=== PATIENT | male | born 1990 | race Caucasian/White ===

== ENCOUNTER 2022-08-29 10:04 | Emergency (ER) | payer OTHER, SELFPAY ==
[2022-08-29 10:30] VITALS: BP 159/102; PULSE 88; RESP 24; TEMP 36.8; O2SAT 96
[2022-08-29 12:51] LABS: Appearance Urine Clear (Clear); Bilirubin Urine Negative (Negative); Blood Urine Negative (Negative); Color Urine Yellow (Yellow); Glucose Urine Negative (Negative); Ketones Urine Negative (Negative); Leukocyte Esterase Urine Negative (Negative); Nitrite Urine Negative (Negative); Protein Urine Trace (Negative); Specific Gravity Urine >= 1.030 (1.000-1.030); Urobilinogen Urine 0.2 (0.2-1.0)
[2022-08-29 13:27] LABS: Mucus Urine Few; RBC Urine 0-2 (0-2); WBC Urine 0-2 (0-5)
--- NOTE | 2022-08-29 13:45 | CRLHL7_ITS ---
For Patients: As a result of the Century Cures Act, medical imaging exams and procedure reports are released immediately into your electronic medical record. You may view this report before your referring provider. If you have questions, please contact your health care provider. INDICATION: Abdominal pain, possible hernia. TECHNIQUE: CT abdomen and pelvis acquired with 122 mL Isovue 370 IV contrast. Coronal and sagittal reformats were generated. COMPARISON: None. FINDINGS: Lower chest: Unremarkable. Liver: Unremarkable. Gallbladder and bile ducts: Unremarkable. No stones or inflammation. No biliary dilation. Spleen: Unremarkable. Pancreas: Unremarkable. Adrenal glands: Unremarkable. No nodules. Kidneys and Ureters: Unremarkable. No suspicious masses, stones, or hydronephrosis. Lymph Nodes and Retroperitoneum: Unremarkable. Vasculature: Unremarkable. GI tract: Unremarkable. Normal in caliber. Peritoneum/Abdominal Wall: A ventral abdominal wall defect measures approximately 2.3 cm (2/100) and contains herniated fat and omentum, but no herniation of bowel. Pelvic Viscera: Unremarkable. Bladder: Unremarkable. Bones: Unremarkable for age. IMPRESSION: 1. Ventral abdominal wall hernia just inferior to the umbilicus does not contain herniation of bowel. 2. No significant CT abnormality in the abdomen or pelvis. Please note that all CT scans at this facility use dose modulation, iterative reconstruction, and/or weight-based dosing when appropriate to reduce radiation dose to as low as reasonably achievable. Dictated by Noble Pack MD @ 08/29/2022 3:36:45 PM (Electronically Signed)
--- NOTE | 2022-08-29 13:46 | ED_ITS ---
HPI - Abdominal Pain General Chief Complaint: Abdominal Pain Stated Complaint: Abdominal pain Time Seen by Provider: 08/29/22 13:39 History of Present Illness HPI narrative: This 31-year-old male comes in reporting lower abdominal pain that began about an hour prior to arrival. He waited for about 3 hours before he was able to be seen because of very busy ER. After about 4 hours since the pain began he states that it has been a constant pain and that he noticed a bulge in his lower abdomen. He denies any altered bowel habits, nausea, vomiting, or symptoms of dysuria. He has not had any fevers. Related Data Previous Rx's Medication Instructions Recorded hydrocodone 5 mg-acetaminophen 325 1 tab PO Q4-6H PRN pain #20 tabs 08/29/22 mg tablet ondansetron 4 mg disintegrating 4 mg PO Q6H #20 tabs 08/29/22 tablet Allergies Allergy/AdvReac Type Severity Reaction Status Date / Time No Known Drug Allergies Allergy Verified 08/29/22 14:40 Review of Systems Status of ROS Reports: 10 or more systems reviewed and unremarkable except as noted in History and below Narrative Constitutional: No fevers, no weight gain or loss. Eyes: No discharge. No vision changes. HENT: No congestion, no sore throat, no ear pain. Cardiovascular: No chest pain, no palpitations. Respiratory: No shortness of breath, no wheezes, no cough. Gastrointestinal: No vomiting, no diarrhea. Lower abdominal pain as described above. Genitourinary: No dysuria, no hematuria. Musculoskeletal: Normal range of motion. Skin: No rashes, no pruritis. Neurological: No dizziness, weakness, sensory change, speech change. Endo/Heme/Allergies: No bruising or bleeding. No polydipsia. Pysch: no suicidality, no anxiety, no insomnia. All other systems reviewed and are negative. Exam Narrative: Exam Narrative: Constitutional: Well-developed, well-nourished, no acute distress. HEENT: Normocephalic, atraumatic. Neck: Normal range of motion. Nontender. Supple. Heart: Regular. No murmurs. Normal rate. Intact distal pulses. Lungs: Clear to auscultation. No chest discomfort. No wheezes, rhonchi, or rales. Abdomen: Normal bowel sounds. Tenderness in the lower abdomen without rebound tenderness. There is a palpable lump at the umbilicus typical of a umbilical hernia. Genitalia: Deferred. Back: No midline tenderness. Normal range of motion. Extremities: Normal range of motion. No injury. Skin: Intact. No rash. Warm. No erythema or pallor. Neurologic: No altered sensation. No weakness. Alert and oriented. Psychiatric: No suicidality. No anxiety or depression. No insomnia. Nursing notes and vitals signs are reviewed. Const: Vital Signs, click to edit/add: Vital Signs - 24 hr 08/29/22 10:30 Temperature 98.2 F Pulse Rate [Pulse Oximeter] 88 Respiratory Rate 24 Blood Pressure [Ri ght Upper Arm] 159/102 H Pulse Oximetry 96 Oxygen Delivery Me thod Room Air Course Vital Signs Vital signs: Initial Vital Signs Temperature 98.2 F 08/29/22 10:30 Temperature Source Temporal Artery Scan 08/29/22 10:30 Pulse Rate 88 08/29/22 10:30 Respiratory Rate 24 08/29/22 10:30 Blood Pressure 159/102 H 08/29/22 10:30 Blood Pressure Mean 121 08/29/22 10:30 Blood Pressure Position Supine 08/29/22 10:30 Pulse Oximetry 96 08/29/22 10:30 Oxygen Delivery Method 08/29/22 10:30 Vital Signs Temperature 98.2 F 08/29/22 10:30 Pulse Rate 88 08/29/22 10:30 Respiratory Rate 24 08/29/22 10:30 Blood Pressure 159/102 H 08/29/22 10:30 Pulse Oximetry 96 08/29/22 10:30 Oxygen Delivery Method 08/29/22 10:30 Temperature 98.2 F 08/29/22 10:30 Pulse Rate 88 08/29/22 10:30 Respiratory Rate 24 08/29/22 10:30 Blood Pressure 159/102 H 08/29/22 10:30 Pulse Oximetry 96 08/29/22 10:30 Oxygen Delivery Method 08/29/22 10:30 MDM - Abdominal Pain MDM Narrative Medical decision making narrative: This patient comes in with abdominal pain that began this morning. He does have a ventral hernia. This is palpable and tender to palpation. A CT scan of the abdomen and pelvis identifies this as a ventral hernia near the umbilicus. There is no evidence of bowel emanating through the hernia. I had the patient lay back and try to relax and I was able to reduce some of the herniation. The patient did receive Dilaudid 0.5 mg and Zofran 4 mg intravenously. I did speak with the surgeon on-call, Dr. Ash, who will be happy to see him in clinic for further evaluation and treatment. I did advise him to return if pain is not controlled. He did received prescriptions for [place] and Zofran. Lab Data Labs: Lab Results 08/29/22 08/29/22 08/29/22 Range/Units 12:30 14:19 14:19 WBC 8.34 (4.50-11.00) K/uL RBC 4.46 (4.30-5.90) m/uL Hgb 13.4 L (13.5-17.5) gm/dL Hct 39.7 (37.0-53.0) % MCV 89 (80-100) fL MCH 30 (26-34) pg MCHC 34 (32-36) gm/dL RDW Coeff of Leora 12.5 (11.5-15.5) % Plt Count 362 (140-440) K/uL Neut % (Auto) 64.2 (42.0-72.0) % Lymph % (Auto) 24.8 (20-44) % [place] % (Auto) 9.0 (0.0-11.0) % Eos % (Auto) 1.7 (0.0-7.0) % Baso % (Auto) 0.2 (0.0-3.0) % Neut # (Auto) 5.35 (1.7-7.0) K/uL Lymph # (Auto) 2.07 (0.90-2.90) K/uL [place] # (Auto) 0.80 (0.00-0.90) K/UL Eos # (Auto) 0.14 (0.00-0.50) K/uL Baso # (Auto) 0.02 (0.00-0.30) K/uL Abs Immat Gran (auto) 0.01 (0.00-0.30) K/uL Imm/Tot Granulo (auto) 0.1 % Sodium 140 (135-149) mmol/L Potassium 4.0 (3.6-5.1) mmol/L Chloride 109 (96-114) mmol/L Carbon Dioxide 23 (20-32) mmol/L BUN 11 (5-24) mg/dL Creatinine 0.6 (0.5-1.5) mg/dL Estimated GFR 131 ml/min Glucose 92 (60-115) mg/dL Calcium 8.9 (8.4-10.6) mg/dL Urine Color Yellow (Yellow) Urine Appearance Clear (Clear) Urine pH 6.0 (5.0-8.5) Ur Specific [place] >= 1.030 (1.000-1.030) Urine Protein Trace A (Negative) Urine Glucose (UA) Negative (Negative) Urine Ketones Negative (Negative) Urine Blood Negative (Negative) Urine Nitrite Negative (Negative) Urine Bilirubin Negative (Negative) Urine Urobilinogen 0.2 (0.2-1.0) Ur Leukocyte Esterase Negative (Negative) Urine RBC 0-2 (0-2) Urine WBC 0-2 (0-5) Ur Squamous Epith Cells None (None-Few) Urine Bacteria None (None) Urine Mucus Few A (None) Imaging Data CT scan - abdomen: Radiologist's impression: 1. Ventral abdominal wall hernia just inferior to the umbilicus does not contain herniation of bowel. 2. No significant CT abnormality in the abdomen or pelvis. Discharge Plan Discharge Clinical Impression: Abdominal hernia Patient Disposition: Home, Self-Care Condition: Unchanged Additional Instructions: Take medication as needed and indicated. Follow up with surgery Clinic for further evaluation and treatment call [phone]. Prescriptions: New hydrocodone-acetaminophen 5-325 mg tablet 1 tab PO Q4-6H PRN (Reason: pain) Qty: 20 0RF ondansetron 4 mg tablet,disintegrating 4 mg PO Q6H Qty: 20 0RF Follow Up/Referrals: Provider,Not a Local [Primary Care Provider] - Stand Alone Forms: [employer] Info Instructions
--- OUTSIDE RECORDS SUMMARY | 2022-08-29 14:23 | XMS_ITS | Clinical Summary ---
:1990 Author Organization [facility] Address [address] [place] [address] Care Team Providers Name Role Phone No Primary/Referring, Phy Primary Care Provider Unavailable Source Comments You are receiving this document as you are listed as the primary care provider,follow-up provider, or the patient has been referred to you for consultation.This is in compliance with the Medicare and Medicaid EHR Incentive Program,which states Providers who transition their patient to another setting of careor provider of care or refers their patient to another provider of care shouldprovide summarycare record for each transition of care or referral. [facility] Allergies No known active allergies Medications Medication Sig Dispensed Refills Start Date End Date Status oxyCODONE Take 1-2 Tabs by 30 Tab 0 05/22/2016 Ac tive (ROXICODONE) 5 MG mouth every 6 hours immediate release as needed for Pain. tablet polyethylene glycol Take 1 Packet by 10 Each 0 05/22/2016 Active (MIRALAX) packet mouth daily as needed for Constipation (No stool in the last two days). sennosides-docusate Take 1 Tab by mouth 14 Tab 0 05/22/2016 Active sodium two times a day. (SENNA-S,SENNA PLUS) 8.6-50 MG per tablet Social History Tobacco Use Types Packs/Day Years Used Date Smoking Tobacco: Every Day Cigarettes 10 Tobacco Cessation: Ready to Quit: No; Co unseling Given: Yes Alcohol Use Standard Drinks/Week Comments Yes 2 (1 standard drink = 0.6 oz pure alcoho l) Sex Assigned at Date Recorded Not on file Last Filed Vital Signs Vital Sign Reading Time Taken Comments Blood Pressure 122/68 05/22/2016 7:50 AM CDT Pulse 79 05/22/2016 7:50 AM CDT Temperature 36.6 ??C (97.8 ??F) 05/22/2016 7:50 AM CDT Respiratory Rate 20 05/22/2016 7:50 AM CDT Oxygen Saturation 96% 05/22/2016 7:50 AM CDT Inhaled Oxygen Concentration - - Weight 124.4 kg (274 lb 4 oz) 05/20/2016 7:22 PM CDT Height 165.1 cm (5' 5) 05/21/2016 8:57 AM CDT estimate Body Mass Index 45.64 05/20/2016 7:22 PM CDT Plan of Treatment Health Maintenance Due Date Last Done Comments Hep C Screening (Preventive 1990 Services) HepB (1) 1990 COVID-19 Vaccine (#1) 03/18/1989 HIV Screening (Preventive 2004 Services) Adult Preventive Visit 2006 DTaP/Tdap/Td (1 - Tdap) 2007 Influenza (#1) 2022 Zoster/Shingles (1 of 2) 2038 HPV Vaccine Aged Out No longer eligib le based on patient's age to complete this topic HepA Aged Out No longer eligib le based on patient's age to complete this topic Hib Aged Out No longer eligib le based on patient's age to complete this topic IPV (Polio) Aged Out No longer eligib le based on patient's age to complete this topic MCV4 Aged Out No longer eligib le based on patient's age to complete this topic Pneumococcal Aged Out No longer eligib le based on patient's age to complete this topic Advance Directives Latest Code Status on File Code Status Date Activated Date Inactivated Comments Full Code 05/20/2016 7:25 PM 05/22/2016 3:45 PM Care Teams Printing 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
--- OUTSIDE RECORDS SUMMARY | 2022-08-29 14:23 | XMS_ITS | Encounter Summary ---
:1990 Author Organization [facility] Address [address] [place] [address] Care Team Providers Name Role Phone No Primary/Referring, Phy Primary Care Provider Unavailable Reason for Visit Procedure/Equipment (Routine) - Incomplete Specialty Diagnoses / Procedures Referred By Contact Refer red To Contact Procedures Modesta Mckeon MD XR Chest 2 Views [address] [place] [address] Referral ID Status Reason Start Date Expiration Date Visits V isits Requested Authorized [id number] Incomplete 05/22/2016 08/21/2017 1 1 Encounter Details Date Type Department Care Team Description 05/22/2016 [facility] [address] [place] [address] Social History Tobacco Use Types Packs/Day Years Used Date Smoking Tobacco: Every Day Cigarettes 10 Alcohol Use Standard Drinks/Week Comments Yes 2 (1 standard drink = 0.6 oz pure alcoho l) Sex Assigned at Date Recorded Not on file documented as of this encounter Plan of Treatment Not on filedocumented as of this encounter Procedures Procedure Name Priority Date/Time Associated Comments Diagnosis XR CHEST 2 VIEWS Specified Time 05/22/2016 8:18 AM Res ults for this CDT procedure are i n the results section. documented in this encounter Results XR Chest 2 Views (05/22/2016 8:18 AM CDT) Anatomical Region Laterality Modality Chest, Lung Computed Radiography Specimen (Source) Anatomical Collection Method Collection Time Re ceived Time Location / / Volume Laterality 05/22/2016 8:18 AM CDT Narrative 05/22/2016 8:34 AM CDT XR CHEST 2 VIEWS 05/22/2016 8:18 AM INDICATION: Cough. Low oxygen saturation postop. COMPARISON: Portable chest 05/20/2016 at 1602 hours. FINDINGS: Strands of platelike atelectas is have developed in both lungs, more apparent in the left base. No effus ion on either side. Mild cardiac enlargement attributable to shallow insp iration. Monitoring leads have been removed. Procedure Note Polo Arriaga MBBS - 05/22/2016Formdanish bojorquez of this note might be different from the original. XR CHEST 2 VIEWS 05/22/2016 8:18 AM INDICATION: Cough. Low oxygen saturation postop. COMPARISON: Portable chest 05/20/2016 at 1602 hours. FINDINGS: Strands of platelike atelectas is have developed in both lungs, more apparent in the left base. No effus ion on either side. Mild cardiac enlargement attributable to shallow insp iration. Monitoring leads have been removed. Modesta TEE GD documented in this encounter Visit Diagnoses Not on filedocumented in this encounter Care Teams Deaf Teacher Relationship Specialty Start Date End Date No Primary/Referring, Phy PCP - General 05/20/16 documented as of this encounter
--- OUTSIDE RECORDS SUMMARY | 2022-08-29 14:24 | XMS_ITS | Encounter Summary ---
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 stable condition. Peña Whitaker MD Staff: MODESTA CHAVES MD CT/MODL /[id number] cc: OPERATIVE REPORT Staff Summary DOS: 05/20/2016 I was scrubbed for and supervised the dhaliwal portions of procedure. There were no apparent complication. Modesta Chaves MD Trauma, Critical Care & Acute Care Surgery 05/23/2016, 1:35 PM documented in this encounter Consult Notes Hay Cuevas RN - 05/20/2016 5:01 PM CDTAssociated Order(s): ED UR SUMMER CLERK CONSULT ED UR Container Filler Note Chart reviewed by ED UR Container Filler: Inpatient admission for management of a nail gun injury to theabd requiring exploratory surgery and post op cares. Hay Cuevas RN documented in this encounter OR Notes H&P - Modesta Chaves MD - 05/20/2016 4:17 PM CDT Trauma Surgery H&P Vijaya Soto NO ROOM (OR)/NO BED 05/20/2016 6:05 PM CC: 3 inch nail gun to abdomen HPI: History obtained with the assistance of Thai interpretor. 89 y.o. unknown who presents to the ER as TTA after sustaining a 3 in nail to the right upper abdomen. Patient was reportedly using a nail gun at work this afternoon when the nail ricocheted off the roof and into his R upper abdomen. EMS called. Patient was alert, in distress 2/2 pain. His vitals remained stable en route, was tachy in the low 100's. 150mcg fentanyl given en route with moderate improvement. In the ED patient arrived in distress from pain. Initial BP 124/80, HR 103, sats in the mid to upper90's. Complaints of R lower chest/upper abdominal pain. No other injuries per patient. No fall or LOC. No extremity pain. No back pain. FAST was negative for intraabdominal fluid. CXR was negative for pneumothorax. Patient remained hemodynamically stable and was transferred to the CT scanner. He received fentanyl 150 mcg in the ED with little improvement of pain. His last PO intake was at 1-2 hours prior to arrival. ROS: ROS collected during ED work up limited, patient denies any other pain or complaint other than RUQ pain. See HPI PMH: Patient denies any pertinent PMH. 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 General: AOx3. Speaks azerbaijani. Acute distress 2/2 pain. HEENT: anicteric sclera, NC/AT, no sign of trauma, EOMI, no hemotympanum or rhinorrhea Neuro: Grossly intact, no focal deficits, CN II-XII intact, PERRL Back: No visible sign of injury Spine: No cervical, thoracic, or lumbar spine tenderness or deformity CV: Tachycardic. Normal s1 s2 no mrg Lungs: CTAb, no respiratory distress Chest Wall: no obvious sign of injury, no apparent chest wall tenderness with palpation of the sternum or ribs Abd: Puncture site with nail visible to the R thoracoabdominal region, entry just inferior to costalmargin and extending inferiorly and posteriorly. TTP. Non distended. Pelvis: Stable Vascular: Proximal and distal pulses intact Ext: all joints ranged fully with FROM and all long bones stressed with no deformity no edema Labs: Hospital Encounter on 05/20/16 (from the past 24 hour(s)) Alcohol,Ethyl Result Value Ref Range Alcohol,Ethyl <0.01 g/dL Narrative Performed at [facility], [address] [place] [address] INR/Protime Result Value Ref Range Protime 12.9 sec INR 1.0 Narrative Performed at [facility], [address] [place] [address]6781 APTT (Activated Partial Thromboplastin Time) Result Value Ref Range PTT 26.0 sec Narrative Performed at [facility], [address] [place] [address] 33932 Basic Metabolic Panel Result Value Ref Range Sodium 141 mmol/L Potassium 4.1 mmol/L Chloride 108 mmol/L CO2 21 mmol/L Anion Gap (calc.) 12 mmol/L Glucose 105 mg/dl Calcium 9.4 mg/dl BUN 13 mg/dl Creatinine 1.03 mg/dl GFR, Estimated Unable to Calculate, Age/Sex Unknown ml/min/1.73m2 GFR, Est., If Black Unable to Calculate, Age/Sex Unknown ml/min/1.73m2 Narrative Performed at [facility], [address] [place] [address]955 Complete Blood Count-No Diff Result Value Ref Range WBC 11.2 k/ul RBC 4.90 M/ul HGB 15.3 g/dl HCT 44.2 % MCV 90.2 fl MCH 31.2 pg MCHC 34.6 g/dl RDW 12.4 % PLTS 315 k/ul MPV 9.7 fl Narrative Performed at [facility], [address] [place] [address] 39287 Fibrinogen Activity Result Value Ref Range Fibrinogen Activity 352 mg/dl Narrative Performed at [facility], [address] [place] [address] Type & Crossmatch-Units Avail For 3 Days Result Value Ref Range ABO/RH(D) O POSITIVE Antibody Screen NEGATIVE Crossmatch Expires 05/23/2016 Unit Number [id number] Blood Component Type LEUK RED HEAD ANIMAL KEEPER UNIT DIVISION 0 Status of Unit Rel from alloc Transfusion Status OK TO TRANSFUSE Crossmatch Result COMPATIBLE Unit Number [id number] Blood Component Type LEUK RED HEAD ANIMAL KEEPER UNIT DIVISION 0 Status of Unit Rel from alloc Transfusion Status OK TO TRANSFUSE Crossmatch Result COMPATIBLE Narrative Performed at [facility], [address] [place] [address] 85294 Gold Hold Tube (Or Red/Ward) Result Value Ref Range Gold Hold Tube Held in Chemistry sample rack for 7 days Narrative Performed at [facility], [address] [place] [address] 42548 ABO/RH(D) Retype Result Value Ref Range ABO/RH(D) O POSITIVE Narrative Performed at [facility], [address] [place] [address] 16545 Glucose, Whole Blood POC Result Value Ref Range Glucose, Whole Blood 103 mg/dl Imaging: CXR: Normal heart size and pulmonary vascularity. Lungs are clear. No pneumothorax. FAST: Negative. Non definitive RUQ, felt to represent subcapsular fat. Otherwise negative. CT A/P: Nail foreign body within the right upper quadrant which the distal most portion appears in the anterior aspect of segment 4A of the left hepatic lobe. No evidence of perihepatic hemorrhage. A/P: 89 y.o. old Male who presented to the ED as TTA on 05/20 after sustaining a nail gun injury to the right upper abdomen. Patient with 3 in nail puncturing through abdomen and embedded in R lobe of liver. Hemodynamically stable. -Patient to OR emergently for FB removal and laparoscopic exploration of the abdomen. -Will admit to trauma post op for close monitoring. Above assessment and plan discussed with the patient, any family present, as well as the referring provider Seen and discussed with Dr Chaves. Rambo Dowling MD Trauma Surgery [phone] TRAUMA STAFF Date of Service: 05/20/2016 The stabilization, resuscitation and evaluation for this TTA patient was performed under my direction. 35 minutes of continuous Trauma Surgeon presence and critical care management from arrival throughCT scans were required to assess for and manage life threatening injuries. I have reviewed the note by Dr. Dowling have edited the plan where appropriate. Mechanism: nail gun, penetrating injury to abdomen/lower right chest En route: as above, hemodynamically stable, 150mcg fentanyl administered for pain Primary Survey Airway patent. Spontaneous respirations with symmetrical chest wall expansion, RR 26 min. Sats 97% on 6L O2. Central pulses palpable. Peripheral pulses palpable, HR 102 & BP 124/80. Disability: GCS 15 CXR: no large hemopneumothorax, foreign body not visible given opacification of liver eFAST: negative, good sliding lung sign on the R. No intra-abdominal free fluid Elected to take pt to CT scanner as hemodynamically stable as it may yield more data that could inform operative decision making. CT imaging (personally reviewed) demonstrates: nail embedded in left lobe of the liver. No significant bleeding noted. Well away from colon. Does not appear to have violated diaphragm Injuries: Penetrating injury to the abdomen, liver injury Will take pt to the operating room for removal in a controlled setting. Will plan to start w/ laparoscopic access and visualized nail being removed with direct visualization of the the liver injury. This will allow us to immediately document any bleeding from the liver and provide control. We can alsoassess diaphragm (sensitivity of CT limited) for injury. Presence of uncontrollable bleeding, diaphragm injury or other intra-abdominal injury not appreciated on CT will be grounds for laparotomy. Modesta Chaves MD 6:57 PM documented in this encounter ED Notes Bronwyn Ramirez DO - 05/20/2016 4:13 PM CDT Emergency Department Attending Supervision Note I performed the dhaliwal elements of history and exam, and agree with resident's findings and plan of care as discussed with Olivia Cuellar. I have reviewed and agreed with the PMH, FH, SOC, ROS. Please see today's note by resident physician. Assessment/Plan: Unknown male on arrival with TTA; s/p nail gun injury sustained to RUQ/thoracoabdomen. VS within acceptable limits on EMS transport. Pt denies SOB. +Abdominal pain mostly located in region of penetrating injury. Nail is noted to be 3 autumn nail, completely imbeded/at level of skin on arrival. Primary survey intact. Secondary survey with only above finding. POC US FAST negative for abdominal FF. Limited cardiac window for complete assessment. pCXR w/o PTX/SHIELA. CTAP/chest reveals missle in R lobe of liver TACS at bedside throughout, appreciate ongoing mgmt, anticipated dispo to OR for removal of nail. I was present for dhaliwal portion of Ultrasound I certify that I performed or supervised the ultrasound(s), reviewed the image(s), and agree with the resident's findings. Author: Bronwyn Ramirez DO Olivia Cuellar MD - 05/20/2016 4:12 PM CDT TRAUMA TEAM ACTIVATION CC: TTA HPI: This is a middle-aged Thai speaking male, here as a trauma team activation. Per EMS, patientsustained a single nail gun injury to the right lower chest. History obtained via property management supervisor. Patient complains of: Right lower chest pain PMH: History of appendicitis Last tetanus was: Four years ago MEDS: None ALLERGIES: Allergies not on file ROS/SH/FH: Not obtained secondary to urgent nature of the patient's emergency room visit. PHYSICAL EXAMINATION: Vital signs: Please see trauma team flowsheet for full set of vitals. Pulse was in the 80s. Blood pressure was in the 130s systolic. Afebrile and sating at high 90s. PRIMARY SURVEY: AIRWAY: The patient was protecting his airway and was talking. BREATHING: The patient had breath sounds bilaterally. CIRCULATION: The patient had strong peripheral pulses. DISABILITY: The patient's GCS was 15. Patient was moving all extremities spontaneously and was following commands. EXPOSURE: The patient was fully exposed. SECONDARY SURVEY HEAD: NCAT EYES: Pupils 2mm equal and reactive EARS: TM's pearly without hemotympanum NOSE: no blood in nares MOUTH: no broken teeth mandible and maxilla grossly stable NECK: C-collar in place CHEST: Heart regular. Lungs clear. Single metal nail seen penetrating the right chest inferior and medial to the right nipple. BACK: no trauma on the back. no disruption of the skin. ABDOMEN: Soft and tender PELVIS: stable on AP and Lateral Compression EXTREMITIES: no injuries are seen in the extremities including the axillae. GENITOURINARY: no lacerations or injuries seen on the perineum. Rectal exam was not performed. ASSESSMENT: Nail gun injury to the right anterior inferior chest. EMERGENCY DEPARTMENT COURSE: Responded to TTA called by EMS. Patient arrived on backboard. Vital signs were stable. 2 large-bor peripheral IV's secured to facilitate volume resusitation. 2L of normal saline were hung. Obtained portable chest x-ray as well as a eFAST exam.eFAST exam was negative. Portable CXR was negative. Portable Pelvis Xray was not orderd. stable trauma panel of labs was sent and the patient was transported to radiology for the following imaging studies: CT abdomen and pelvis was obtained due to penetrating trauma. This showed a nail foreign body within the right upper quadrant which enters the liver. No perihepatic hemorrhage seen. fentanyl was given for pain. Tetanus was not updated. Pain meds: fentanyl Intubation medications: NA Tetanus: up to date Anxiolysis: none Antibiotics: none PLAN: Pt was quickly transferred of the emergency department to the operating room for removal of the foreign body in the operating room. Patient will then be admitted under the care of the TACS team who will complete the tertiary exam and continue management. FINAL DIAGNOSES: Penetrating stab wound to the right inferior chest involving the liver. Olivia Cuellar MD documented in this encounter Plan of Treatment Scheduled Referrals Name Type Priority Associated Diagnoses Order S chedule Trauma Acute Care Referral Routine Ordered: 0 05/21/2016 Surgery (TACS) Referral - Adults No Follow-Up Needed Referral Routine Once tod ay starting now for 1 Occurrenc es starting 2015 until 6 documented as of this encounter Procedures Procedure Name Priority Date/Time Associated Comments Diagnosis XR CHEST 2 VIEWS Specified Time 05/22/2016 8:18 Result s for this AM CDT procedure are i n the results section. BASIC METABOLIC PANEL Routine 05/21/2016 8:25 Res ults for this AM CDT procedure are i n the results section. COMPLETE BLOOD Routine 05/21/2016 8:25 Results fo r this COUNT-NO DIFF AM CDT procedure are in the results section. GLUCOSE, WHOLE BLOOD Routine 05/20/2016 8:57 Resu lts for this POCT PM CDT procedure are i n the results section. GLUCOSE, WHOLE BLOOD Routine 05/20/2016 6:02 Resu lts for this POCT PM CDT procedure are i n the results section. GLUCOSE, WHOLE BLOOD Routine 05/20/2016 5:04 Resu lts for this POCT PM CDT procedure are i n the results section. HEMOGLOBIN, MEASURED Routine 05/20/2016 5:02 Resu lts for this POCT PM CDT procedure are i n the results section. SURGICAL PATH Routine 05/20/2016 5:00 Results for this PM CDT procedure are i n the results section. CT ABD PELVIS W IV STAT 05/20/2016 4:25 Result s for this CONT PM CDT procedure are i n the results section. LAPAROSCOPIC ER Patient 05/20/2016 4:15 Acute foreign EXPLORATION ABDOMEN PM CDT body of abdominal wall ABO/RH(D) RETYPE STAT 05/20/2016 4:09 Results for this PM CDT procedure are i n the results section. XR PORTABLE CHEST 1 STAT 05/20/2016 4:07 Resul ts for this VIEW PM CDT procedure are i n the results section. GOLD HOLD TUBE (OR Routine 05/20/2016 3:59 Result s for this RED/WARD) PM CDT procedure are i n the results section. TYPE & Routine 05/20/2016 3:59 Results for this CROSSMATCH-UNITS PM CDT procedure a re in AVAIL FOR 3 DAYS the results section. BASIC METABOLIC PANEL STAT 05/20/2016 3:59 Res ults for this PM CDT procedure are i n the results section. APTT (ACTIVATED STAT 05/20/2016 3:59 Results f or this PARTIAL PM CDT procedure are i n THROMBOPLASTIN TIME the resu lts section. FIBRINOGEN ACTIVITY STAT 05/20/2016 3:59 Resul ts for this PM CDT procedure are i n the results section. COMPLETE BLOOD STAT 05/20/2016 3:59 Results fo r this COUNT-NO DIFF PM CDT procedure are in the results section. ALCOHOL,ETHYL STAT 05/20/2016 3:59 Results for this PM CDT procedure are i n the results section. INR/PROTIME STAT 05/20/2016 3:59 Results for this PM CDT procedure are i n the results section. POC US FAST Routine 05/20/2016 3:55 Results for this PM CDT procedure are i n the results section. EKG IP 05/20/2016 12:00 Results for this AM CDT procedure are i n the results [...] removed. Procedure Note Polo Arriaga MBBS - 05/22/2016Formattin g of this note might be different from [...] insp iration. Monitoring leads have been removed. Uroghupatei Greg Chaves MD RAD GD (ABNORMAL) Basic Metabolic Panel (05/21/2016 8:25 AM CDT) P athologist Signature Sodium 135 (L) 136 - 145 [facility] mmol/L [facility] Potassium 3.7 3.5 - 5.1 [facility] mmol/L [facility] Chloride 105 98 - 107 [facility] mmol/L [facility] CO2 21 20 - 29 [facility]/L [facility] Anion Gap 9 7 - 16 [facility] (calc.) mmol/L [facility] Glucose 118 70 - 180 [facility] mg/dl [facility]OSPITAL Calcium 8.4 8.4 - 10.2 [facility] mg/dl [facility] BUN 12 7 - 26 [facility] mg/dl [facility] Comment: PLEASE NOTE CHANGE IN REFERENCE RANGE Creatinine 0.70 (L) 0.73 - 1.18 mg/dl [facility] Comment: PLEASE NOTE CHANGE IN REFERENCE RANGE GFR, Estimated >60 >60 ml/min/1.73m2 [facility] GFR, Est., If Black >60 >60 ml/min/1.73m2 [facility] Specimen Anatomical Collection Method Collection Time Receive d Time (Source) Location / / Volume Laterality 05/21/2016 8:25 AM 6 8:26 CDT AM CDT [facility] - 05/21/2016 9:03 AM CD T Performed at [facility] , [address] [place] [address] Peña Whitaker MD LAB_1 Performing Organization Address City/State/ZIP Code Phon e Number [address] [address] (ABNORMAL) Complete Blood Count-No Diff (05/21/2016 8:25 AM CDT) athologist Signature WBC 9.1 4.0 - 11.0 [facility] RBC 4.43 (L) 4.5 - 5.9 [facility] Hemoglobin 13.9 13.5 - 17.5 [facility] g/dl [facility] HCT 40.6 (L) 41.0 - 53.0 [facility] MCV 91.6 80 - 100 [facility] MCH 31.4 26 - 34 pg [facility] MCHC 34.2 32 - 36 [facility] g/dl [facility] RDW 12.9 11.5 - 14.5 [facility] Platelets 253 150 - 450 [facility] MPV 9.4 9.4 - 12.4 [facility] Specimen Anatomical Collection Method Collection Time Receive d Time (Source) Location / / Volume Laterality 05/21/2016 8:25 AM 6 8:26 CDT AM CDT [facility] - 05/21/2016 8:40 AM CD T Performed at [facility] , [address] [place] [address] Peña Whitaker MD LAB_1 Performing Organization Address City/[facility]/[place]IP [facility] [place] [address] [address] Glucose, Whole Blood POC (05/20/2016 8:57 PM CDT) P athologist Signature Glucose, Whole 94 70 - 180 [facility] Blood mg/dl [facility] Comment: Point of Care Testing RN Notified QA FLAGS AND/OR RANGES MODIFIED BY [employer] RAPHIC UPDATE ON 05/21 AT 0659 Specimen Anatomical Collection Method Collection Time Receive d Time (Source) Location / / Volume Laterality 05/20/2016 8:57 PM 6 9:11 CDT PM CDT Bronwyn Ramirez DO LAB_1 Performing Organization Address [facility]/ZIP Code Phon e Number [address] [address] Glucose, Whole Blood POC (05/20/2016 6:02 PM CDT) P athologist Signature Glucose, Whole 111 70 - 180 [facility] Blood mg/dl [facility] Comment: Point of Care Testing RN Notified QA FLAGS AND/OR RANGES MODIFIED BY [employer] RAPHIC UPDATE ON 05/21 AT 0659 Specimen Anatomical Collection Method Collection Time Receive d Time (Source) Location / / Volume Laterality 05/20/2016 6:02 PM 6 6:10 CDT PM CDT Bronwyn Ramirez DO LAB_1 Performing Organization Address City/[facility] Phon e Number [address] [address] Glucose, Whole Blood POC (05/20/2016 5:04 PM CDT) P athologist Signature Glucose, Whole 103 70 - 180 [facility] Blood mg/dl [facility] Comment: Point of Care Testing RN Notified QA FLAGS AND/OR RANGES MODIFIED BY DEMElectron Database RAPHIC UPDATE ON 05/21 AT 0659 Specimen Anatomical Collection Method Collection Time Receive d Time (Source) Location / / Volume Laterality 05/20/2016 5:04 PM 6 5:12 CDT PM CDT Bronwyn Call Ashley SEGAL LAB_1 Performing Organization Address [facility] Phon e Number [address] [address] Hgb, Point of Care (05/20/2016 5:02 PM CDT) P athologist Signature Hemoglobin 13.6 13.5 - 17.5 [facility] g/dl [facility] Comment: QA FLAGS AND/OR RANGES MODIFIED BY DEMOGRAPHIC UPDATE ON 05/21 AT 0659 Specimen Anatomical Collection Method Collection Time Receive d Time (Source) Location / / Volume Laterality 05/20/2016 5:02 PM 6 6:38 CDT AM CDT Bronwyn Ramirez DO LAB_1 Performing Organization Address [facility] Phon e Number [address] [address] Surgical Path (05/20/2016 5:00 PM CDT) Patholo gist Method Time Signature Histology (NOTE) [facility] Final Report [facility] Patient Name: CLAUDINE ROYAL Taken: 05/20/2016 Received: 05/20/2016 Reported: 05/23/2016 Physician(s): MODESTA CHAVES ? Final Pathologic Diagnosis Foreign body, removal (gross examination only): ?- Consistent with foreign body (nail) *Electronically Signed Out By* ? Leida Brunner MD Procedures/Addenda Clinical History Autumn nail in abdomen ?? Gross Description The specimen is received fresh and labeled with the patient' s name and foreign body removal. ??The specimen consists of a 7.6 cm in length by 0.3 cm in diameter silver metallic nail. ??The specimen i s subjected to a gross examination only. ??js jds/05/21/2016 Microscopic Description Gross examination only. mrs/05/23/2016 Leida Brunner MD [facility] Department of Pathology [address] [place] [address] ??[id number] Specimen Anatomical Collection Method Collection Time Receive d Time (Source) Location / / Volume Laterality 05/20/2016 5:00 PM 6 6:36 CDT PM CDT Modesta Chaves MD LAB_1 Performing Organization Address City/State/ZIP Code Phon e Number [address] [address] [address] Abd Pelvis W IV Cont (05/20/2016 4:25 PM CDT) Anatomical Region Laterality Modality Abdomen, Pelvis Computed Tomography Specimen (Source) Anatomical Collection Method Collection Time Re ceived Time Location / / Volume Laterality 05/20/2016 4:25 PM CDT Narrative 05/20/2016 4:[address] ABD PELVIS W IV CONT 05/20/2016 4:25 PM ? INDICATION: Pain following trauma. Nail gun injury to right upper abdomen. TECHNIQUE: CT abdomen and pelvis. Multip lanar reformation images (MPR). Dose reduction techniques were used. IV CONTRAST: 125 mL Omnipaque 300 COMPARISON: None. FINDINGS: LUNG BASES: Negative. ABDOMEN: The liver is low-density appear ance, compatible with hepatic steatosis. There is a nail foreign body within the right upper quadrant with the distal portion breaching the an terior portion of the Blake segment of the left hepatic lobe. No evidence of perihepatic hemorrhage. The spleen, pancreas, gallbladder, adrenal g lands, and kidneys are grossly normal. The abdominal aorta is normal in caliber . No lymphadenopathy. No bowel obstruction or abnormal bowel wall thick ening. PELVIS: No free fluid. Urinary bladder i s grossly normal. No lymphadenopathy. MUSCULOSKELETAL: Negative. CONCLUSION: Nail foreign body within the right upper quadrant which the distalmost portion appears in the anteri or aspect of segment 4A of the left hepatic lobe. No evidence of perihepati c hemorrhage. Procedure Note Benny Spivey MD - 05/20/2016Form atting of this note might be different from the original. CT ABD PELVIS W IV CONT 05/20/2016 4:25 PM INDICATION: Pain following trauma. Nail gun injury to right upper abdomen. TECHNIQUE: CT abdomen and pelvis. Multip lanar reformation images (MPR). Dose reduction techniques were used. IV CONTRAST: 125 mL Omnipaque 300 COMPARISON: None. FINDINGS: LUNG BASES: Negative. ABDOMEN: The liver is low-density appear ance, compatible with hepatic steatosis. There is a nail foreign body within the right upper quadrant with the distal portion breaching the an terior portion of the Blake segment of the left hepatic lobe. No evidence of perihepatic hemorrhage. The spleen, pancreas, gallbladder, adrenal g lands, and kidneys are grossly normal. The abdominal aorta is normal in caliber . No lymphadenopathy. No bowel obstruction or abnormal bowel wall thick ening. PELVIS: No free fluid. Urinary bladder i s grossly normal. No lymphadenopathy. MUSCULOSKELETAL: Negative. CONCLUSION: Nail foreign body within the right upper quadrant which the distalmost portion appears in the anteri or aspect of segment 4A of the left hepatic lobe. No evidence of perihepati c hemorrhage. Bronwyn Ramirez DO RAD CT ABO/RH(D) Retype (05/20/2016 4:09 PM CDT) P athologist Signature ABO/RH(D) O POSITIVE [facility] Specimen Anatomical Collection Method Collection Time Receive d Time (Source) Location / / Volume Laterality 05/20/2016 4:09 PM 6 4:18 CDT PM CDT Narrative [facility] - 05/20/2016 4:35 PM CD T Performed at [facility] , [address] [place] [address] Bronwyn Ramirez DO LAB_1 Performing Organization Address City/State/ZIP Code Phon e Number [address] [address] XR Portable Chest 1 View (05/20/2016 4:07 PM CDT) Anatomical Region Laterality Modality Chest, Lung Computed Radiography Specimen (Source) Anatomical Collection Method Collection Time Re ceived Time Location / / Volume Laterality 05/20/2016 4:07 PM CDT Narrative 05/20/2016 4:18 PM CDT XR PORTABLE CHEST 1 VIEW 05/20/2016 4:07 PM INDICATION: Trauma. Pain ? COMPARISON: None. FINDINGS: Normal heart size and pulmonar y vascularity. Lungs are clear. No pneumothorax. IMPRESSION: Negative chest. Procedure Note Jerry Hidalgo MD - 05/20/2016Format ting of this note might be different from the original. XR PORTABLE CHEST 1 VIEW 05/20/2016 4:07 PM INDICATION: Trauma. Pain COMPARISON: None. FINDINGS: Normal heart size and pulmonar y vascularity. Lungs are clear. No pneumothorax. IMPRESSION: Negative chest. Bronwyn Ramirez DO RAD PORTABLE Gold Hold Tube (Or Red/Ward) (05/20/2016 3:59 PM CDT) [facility] Fitsistant Method Time Signature Gold Hold Held in [facility] Tube Chemistry HOSPITAL sample rack for 7 days Specimen Anatomical Collection Method Collection Time Receive d Time (Source) Location / / Volume Laterality 05/20/2016 3:59 PM 6 4:13 CDT PM CDT Narrative [facility] - 05/20/2016 4:15 PM CD T Performed at [facility] , [address] [place] [address] Bronwyn Ramirez DO LAB_1 Performing Organization Address City/State/ZIP Code Phon e Number [address] [address] Type & Crossmatch-Units Avail For 3 Days (05/20/2016 3:59 PM CDT) [facility] Fitsistant Method Time Signature ABO/RH(D) O POSITIVE [facility] Antibody Screen NEGATIVE [facility] Crossmatch 05/23/2016 [facility] Expires HOSPITAL Unit Number [id number] [facility] Blood 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 [facility] Type HOSPITAL UNIT DIVISION 0 [facility] Status of Unit Rel from alloc [facility] Transfusion OK TO REGIONS Status TRANSFUSE HOSPITAL Crossmatch COMPATIBLE [facility] Result HOSPITAL Unit Number [id number] [facility] Blood 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 [facility] Type HOSPITAL UNIT DIVISION 0 [facility] Status of Unit Rel from [facility] HOSPITAL Transfusion OK TO REGIONS Status TRANSFUSE HOSPITAL Crossmatch COMPATIBLE [facility] Result HOSPITAL Specimen Anatomical Collection Method Collection Time Receive d Time (Source) Location / / Volume Laterality 05/20/2016 3:59 PM 6 4:16 CDT PM CDT Narrative [facility] - 05/20/2016 5:38 PM CD T Performed at [facility] , [address] [place] [address] Bronwyn Ramirez DO LAB_1 Performing Organization Address [facility] Phon e Number [address] [address] Fibrinogen Activity (05/20/2016 3:59 PM CDT) P athologist Signature Fibrinogen 352 175 - 420 [facility] Activity mg/dl [facility] Comment: QA FLAGS AND/OR RANGES MODIFIED BY DEMOGRAPHIC UPDATE ON 05/21 AT 0659 Specimen Anatomical Collection Method Collection Time Receive d Time (Source) Location / / Volume Laterality 05/20/2016 3:59 PM 6 4:13 CDT PM CDT [facility] - 05/21/2016 6:59 AM CD T Performed at [facility] , [address] [place] [address] Bronwyn Ramirez DO LAB_1 Performing Organization Address [facility] Phon e Number [address] [address] (ABNORMAL) Complete Blood Count-No Diff (05/20/2016 3:59 PM CDT) P athologist Signature WBC 11.2 (H) 4.0 - 11.0 [facility] k/ul HOSPITAL Comment: QA FLAGS AND/OR RANGES MODIFIED BY DEMOGRAPHIC UPDATE ON 05/21 AT 0659 RBC 4.90 4.5 - 5.9 M/ul [facility] L Comment: QA FLAGS AND/OR RANGES MODIFIED BY DEMOGRAPHIC UPDATE ON 05/21 AT 0659 Hemoglobin 15.3 13.5 - 17.5 g/dl [facility] ITAL Comment: QA FLAGS AND/OR RANGES MODIFIED BY DEMOGRAPHIC UPDATE ON 05/21 AT 0659 HCT 44.2 41.0 - 53.0 % [facility] Comment: QA FLAGS AND/OR RANGES MODIFIED BY DEMOGRAPHIC UPDATE ON 05/21 AT 0659 MCV 90.2 80 - 100 fl [facility] Comment: QA FLAGS AND/OR RANGES MODIFIED BY DEMOGRAPHIC UPDATE ON 05/21 AT 0659 MCH 31.2 26 - 34 pg [facility] Comment: QA FLAGS AND/OR RANGES MODIFIED BY DEMOGRAPHIC UPDATE ON 05/21 AT 0659 MCHC 34.6 32 - 36 g/dl [facility] Comment: QA FLAGS AND/OR RANGES MODIFIED BY DEMOGRAPHIC UPDATE ON 05/21 AT 0659 RDW 12.4 11.5 - 14.5 % [facility] Comment: QA FLAGS AND/OR RANGES MODIFIED BY DEMOGRAPHIC UPDATE ON 05/21 AT 0659 Platelets 315 150 - 450 k/ul [facility] Comment: QA FLAGS AND/OR RANGES MODIFIED BY DEMOGRAPHIC UPDATE ON 05/21 AT 0659 MPV 9.7 9.4 - 12.4 fl [facility] Comment: QA FLAGS AND/OR RANGES MODIFIED BY DEMOGRAPHIC UPDATE ON 05/21 AT 0659 Specimen Anatomical Collection Method Collection Time Receive d Time (Source) Location / / Volume Laterality 05/20/2016 3:59 PM 6 4:13 CDT PM CDT Narrative [facility] - 05/21/2016 6:59 AM CD T Performed at [facility] , [address] [place] [address] Bronwyn Ramirez DO LAB_1 Performing Organization Address City/State/ZIP Code Phon e Number [address] [address] (ABNORMAL) Basic Metabolic Panel (05/20/2016 3:59 PM CDT) P athologist Signature Sodium 141 136 - 145 [facility] mmol/L [facility] Comment: QA FLAGS AND/OR RANGES MODIFIED BY DEMOGRAPHIC UPDATE ON 05/21 AT 0659 Potassium 4.1 3.5 - 5.1 mmol/L [facility] Comment: QA FLAGS AND/OR RANGES MODIFIED BY DEMOGRAPHIC UPDATE ON 05/21 AT 0659 Chloride 108 (H) 98 - 107 mmol/L [facility] Comment: QA FLAGS AND/OR RANGES MODIFIED BY DEMOGRAPHIC UPDATE ON 05/21 AT 0659 CO2 21 20 - 29 mmol/L [facility] Comment: QA FLAGS AND/OR RANGES MODIFIED BY DEMOGRAPHIC UPDATE ON 05/21 AT 0659 Anion Gap (calc.) 12 7 - 16 mmol/L [facility] Comment: QA FLAGS AND/OR RANGES MODIFIED BY DEMOGRAPHIC UPDATE ON 05/21 AT 0659 Glucose 105 70 - 180 mg/dl [facility] Comment: QA FLAGS AND/OR RANGES MODIFIED BY DEMOGRAPHIC UPDATE ON 05/21 AT 0659 Calcium 9.4 8.4 - 10.2 mg/dl [facility] Comment: QA FLAGS AND/OR RANGES MODIFIED BY DEMOGRAPHIC UPDATE ON 05/21 AT 06 BUN 13 7 - 26 mg/dl [facility] Comment: PLEASE NOTE CHANGE IN REFERENCE RANGE QA FLAGS AND/OR RANGES MODIFIED BY DEMOG RAPHIC UPDATE ON 05/21 AT 0659 Creatinine 1.03 0.73 - 1.18 mg/dl [facility] Comment: PLEASE NOTE CHANGE IN REFERENCE RANGE QA FLAGS AND/OR RANGES MODIFIED BY DEMOG RAPHIC UPDATE ON 05/21 AT 0659 GFR, Estimated Unable to Calculate, Age/Sex >60 ml/min/1.73m2 [facility] Unknown Comment: QA FLAGS AND/OR RANGES MODIFIED BY DEMOGRAPHIC UPDATE ON 05/21 AT 06 GFR, Est., If Black Unable to Calculate, >60 ml/min/1.73m2 [facility] Age/Sex Unknown Comment: QA FLAGS AND/OR RANGES MODIFIED BY DEMOGRAPHIC UPDATE ON 05/21 AT 06 Specimen Anatomical Collection Method Collection Time Receive d Time (Source) Location / / Volume Laterality 05/20/2016 3:59 PM 6 4:13 CDT PM CDT [facility] - 05/21/2016 6:59 AM CD T Performed at [facility] , [address] [place] [address] Bronwyn Ramirez DO LAB_1 Performing Organization Address City/State/ZIP Code Phon e Number [address] [address] APTT (Activated Partial Thromboplastin Time) (05/20/2016 3:59 PM CDT) athologist Signature PTT 26.0 24.0 - 37.0 [facility] Comment: QA FLAGS AND/OR RANGES MODIFIED BY DEMOGRAPHIC UPDATE ON 05/21 AT 06 Specimen Anatomical Collection Method Collection Time Receive d Time (Source) Location / / Volume Laterality 05/20/2016 3:59 PM 6 4:13 CDT PM CDT [facility] - 05/21/2016 6:59 AM CD T Performed at [facility] , [address] [place] [address] Bronwyn Ramirez DO LAB_1 Performing Organization Address City/[facility]/ZIP Code Phon e Number [facility] [address] [place] [address] [address] INR/Protime (05/20/2016 3:59 PM CDT) P athologist Signature Protime 12.9 12.0 - 14.5 [facility] Comment: QA FLAGS AND/OR RANGES MODIFIED BY DEMOGRAPHIC UPDATE ON 05/21 AT 0659 INR 1.0 0.9 - 1.1 [facility] Comment: QA FLAGS AND/OR RANGES MODIFIED BY DEMOGRAPHIC UPDATE ON 05/21 AT 0659 Specimen Anatomical Collection Method Collection Time Receive d Time (Source) Location / / Volume Laterality 05/20/2016 3:59 PM 6 4:13 CDT PM CDT Narrative [facility] - 05/21/2016 6:59 AM CD T Performed at [facility] , [address] [place] [address] Bronwyn Oneyda Ramirez DO LAB_1 Performing Organization Address City/[facility] Phon e Number [address] [address] Alcohol,Ethyl (05/20/2016 3:59 PM CDT) P athologist Signature Alcohol,Ethyl <0.01 <0.01 g/dL [facility] Comment: QA FLAGS AND/OR RANGES MODIFIED BY DEMOGRAPHIC UPDATE ON 05/21 AT 0659 Specimen Anatomical Collection Method Collection Time Receive d Time (Source) Location / / Volume Laterality 05/20/2016 3:59 PM 6 4:13 CDT PM CDT Narrative [facility] - 05/21/2016 6:59 AM CD T Performed at [facility] , [address] [place] [address] Bronwyn Ramirez DO LAB_1 Performing Organization Address City/[facility]/ZIP [facility] Phon e Number [address] [address] POC US FAST (05/20/2016 3:55 PM CDT) Anatomical Region Laterality Modality Ultrasound Specimen (Source) Anatomical Location Collection Method / Collectio n Time Received Time / Laterality Volume Narrative 05/20/2016 6:14 PM CDT Olivia Cuellar MD ? 05/20/2016 ??6:14 PM [facility] Point of Care Ultrasound Interpretation POC US FAST Date/Time: 05/20/2016 6:13 PM Performed by: OLIVIA CUELLAR Authorized by: BORNWYN RAMIREZ Point of Care Ultrasound: FAST (Focused Assessment with Sonography in Trauma) Indications: Abdominal Pain Window: Cardiac Window, Hepatorenal Wind ow, Perisplenic Window, Pelvic Window, Right Lung and Left Lung Findings: No Pericardial Effusion, No In traperitoneal Free Fluid and No Pneumothorax Impression: eFAST Negative Bronwyn Ramirez DO RAD POC US EKG IP (05/20/2016 12:00 AM CDT) Specimen (Source) Anatomical Location Collection Method / Collectio n Time Received Time / Laterality Volume 05/20/2016 Narrative This result has an attachment that is no t available. Provider [facility] EKG documented in this encounter Visit Diagnoses Diagnosis Stab wound - Primary Open wound(s) (multiple) of unspecified site(s), without mention of complication Injury by nail gun, initial encounter Liver injury, initial encounter Penetrating chest wound, unspecified lat erality, initial encounter Plan of Care - Luz Morales RN - 05/22/2016 10:25 AM CDT [facility] Discharge Note - Nursing Admission Date/Time: 05/20/2016 3:50 PM Attending MD: Modesta Chaves MD Patient discharged: to Home. Discharge Date: 05/22/2016 Discharge Time: 1:41 PM Patient accompanied by: relative. Transported by: Walked Valuables were taken home by patient: Yes Discharge instructions given and explained to patient: Yes Discharge Patient Education Plan completed, taught, and provided to patient/caregiver at discharge: Yes, done with video therapist's assistant ?? Discussed medication risks with patient ?? Patient understands medications usage and side effects ?? Patient understands diagnosis ?? Action Plan for management of symptoms/side effects/complications requiring medical attention established and shared with patient/caregiver Was patient discharged on Warfarin? {(Do not delete line; Warfarin documentation is required) No Patients general condition on discharge: Stable. VSS, sats well on RA. LS clear, +BS, +flatus. Ambulating independently, adequate UOP. Tolerating regular diet All medical devices (telemetry/IV/etc) unless otherwise ordered, have been removed and stored: Yes Report Completed by: Luz Morales RN --- End of Report --- Plan of Care - Collins Bennett RN - 05/22/2016 3:57 AM CDT [facility] Plan of Care Note Assessment: Comfort Plan: Promote comfort with pain medicine; encourage ambulation in yung. Subjective: prudencio pokito Objective: Alert and oriented x4, but Thai speaking. Activity improved steadily, walked in yung before bedtime. Patient reported improvement with pain. Hypoactive BS, tolerating regular meal withoutproblem. No nausea or vomiting. Sleeping adequately between cares. Vss, afebrile. --- End of Report --- Plan of Care - Adi Moreira RN - 05/21/2016 6:16 PM CDT Problem: Pain, Acute (Adult) Goal: Identify Related Risk Factors and Signs and Symptoms 05/21/16 181 Pain, Acute Related Risk Factors (Acute Pain) communication barrier;trauma;surgery;positioning Signs and Symptoms (Acute Pain) fatigue/weakness;guarding/abnormal posturing/positioning;verbalization of pain descriptors Comments: [facility] Plan of Care Note Assessment: Comfort Plan: patient will have tolerable pain control with increase in activity Subjective: Esta Foreign. Objective: patient vss. Pt was up ambulating in the halls with the RN, tolerated well. Pt has hypo bs, denies flatus. Reports that abdomen is slight more bloated/rounded than normal. Pt is having tolerable pain control with scheduled tylenol and prn oxycodone. Pt tolerating regular diet, encouraged fluid intake. Discussed plan of care with patient, provider and interpretter. Cared for patient from [phone]. --- End of Report --- Plan of Care - Luz Morales RN - 05/21/2016 12:41 PM CDT Pain, Acute (Adult) ??? Identify Related Risk Factors and Signs and Symptoms Progressing ??? Acceptable Pain Control/Comfort Level Progressing Perioperative Period (Adult) ??? Signs and Symptoms of Listed Potential Problems Will be Absent or Manageable (Perioperative Period) Progressing [facility] Plan of Care Note Assessment: Pain, ROBF Plan: Assess and manage pain, monitor for ROBF Subjective: I feel okay Objective: A/Ox4, pt states pain is tolerable with scheduled tylenol. Abd soft/tender, BS not audible, denies flatus. Tolerated CLD, advanced to regular diet. Up with therapy today, c/o pain with activity and is feeling SOB. Continues to require 1-2L NC, encouraged frequent IS use. VSS. Up in chair all morning. In-person and video therapist's assistant used for assessments, teaching, and interaction with therapy. Due to void. Cared for pt from [phone] --- End of Report --- Initial Assessments - Jered Granados RN - 05/21/2016 9:38 AM CDT [facility] Trauma Case Management Initial Assessment Admission Date/Time: 05/20/2016 3:50 PM Assessment Td Status: Updated ETOH SBIRT: Negative ETOH Level: <0.01 Chem Dep Consult: No GCS Scene: No forms GCS ED: Eye: 4 Verbal: 5 Motor: 6 Mechanism of injury: Patient was reportedly using a nail gun at work when the nail ricocheted off the roof and into his R upper abdomen Identified injuries: injuries [employer] Plan Follow Up 1. Foreign body into abdominal wall Trauma 05/20 s/p laparoscopic exploration -Pain control -ADAT Pertinent Clinical Issues Plan Follow Up 1. Focused physical exam and pertinent findings: Patient seen at bedside on S11. Neuro: alert, oriented x4. PERRL. MCKEON. Denies N/T. Currently rating abdominal pain 01/05. Cardiac: S1S2. Regular rate. 2 radial pulses. +2 DP pulses. Afebrile. Respiratory: Lung sounds clear. SpO2 95% on RA. GI: Active bowel sounds. Abdomen soft, tender. Denies nausea/vomiting. Tolerating clear liquid diet. :Voiding spontaneously without difficulty. Adequate urine output. Activity: Up ad arina. Height: 5' 5 (165.1 cm) (estimate) Weight: 124.4 kg (274 lb 4 oz) Temp: 98.2 ??F (36.8 ??C) Pulse: 67 BP: 115/60 mmHg Resp: 18 SpO2: (!) 89 % HGB (g/dl) Date Value 05/21/2016 13.9 05/20/2016 13.6 05/20/2016 15.3 WBC (k/ul) Date Value 05/21/2016 9.1 05/20/2016 11.2* Last Chem8 results: Lab Results Component Value Date/Time SODIUM 135* 05/21/2016 08:25 AM POTASSIUM 3.7 05/21/2016 08:25 AM CHLORIDE 105 05/21/2016 08:25 AM CO2 21 05/21/2016 08:25 AM BUN 12 05/21/2016 08:25 AM CREATININE 0.70* 05/21/2016 08:25 AM GLUCOSE 118 05/21/2016 08:25 AM CALCIUM 8.4 05/21/2016 08:25 AM ANION GAP (CALC.) 9 05/21/2016 08:25 AM Current living situation: Lives with friend in trailer home Family spokesperson: Self Planned disposition: Home 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 NO. Care Plan Initial Plan of Care: Pain: APAP, oxycodone, morphine Aggressive pulmonary toileting, I/S DVT Prophylaxis: SCDs Diet: Regular Bowel Regimen: Miralax, Senna-S, Dulcolax Social Work Consult for patient and family counseling, coordination of care and discharge planning This document was completed by: Jered Granados RN --- End of Report --- Plan of Care - Collins Bennett RN - 05/21/2016 7:52 AM CDT [facility] Nursing Post-Op Note Admission Date/Time: 05/20/2016 3:50 PM Returned to: S11 on (date) 05/20/16 at (time) 1915 from [facility] Transported by: Litter/cart Medical devices present on return from O.R.: IV General condition on return from O.R.: Alert and oriented with moderate amount of pain. Vss, afebrile. No nausea and vomiting. Report Completed by: Collins Bennett RN --- End of Report --- Plan of Care - Collins Bennett RN - 05/21/2016 7:49 AM CDT [facility] Plan of Care Note Assessment: Post op status, pain Plan: Promote comfort and monitor hemodynamic status Subjective: prudencio. Patient is Thai speaking but uses call light Objective: Vss, afebrile. Oxycodone provided for pain with relief observed. Abdomen is soft and tender. No nausea and vomiting. Drinking sips of water without problems. Lungs clear and breathing without using accessory muscles. --- End of Report --- Plan of Care - Constanza London RN - 05/20/2016 7:25 PM CDT [facility] Plan of Care Note (Nursing) I have completed a skin assessment for this patient and agree with the documentation. Constanza London RN --End of Report-- documented in this encounter Administered Medications Inactive Administered Medications - up to 3 most recent administrations Medication Order MAR Action Action Date Dose Rate Site acetaminophen (TYLENOL) tablet 650 Given 05/22/2016 7:48 AM CDT 650 mg mg 650 mg, Oral, Q6H (NON-STND), First dose on Thu05/20/16 at 1945, Until Discontinued Given 05/22/2016 1:44 AM CDT 650 mg Given 05/21/2016 7:47 PM CDT 650 mg fentaNYL (aka SUBLIMAZE) injection Given 05/20/2016 4:02 PM CDT 50 mcg Intravenous, PRN WITH PROCEDURES, Starting on Thu05/20/16 at 1602, Until Thu05/20/16 at 1602 fentaNYL (aka SUBLIMAZE) injection Given 05/20/2016 4:09 PM CDT 50 mcg Intravenous, PRN WITH PROCEDURES, Starting on Thu05/20/16 at 1609, Until Thu05/20/16 at 1609 lactated ringers infusion New Bag Started 05/21/2016 3:56 AM 1,000 mL 125 mL/hr 1,000 mL, Intravenous, at CDT 125 mL/hr, CONTINUOUS, Starting on Thu05/20/16 at 1945 Started 05/20/2016 7:51 PM CDT 1,000 mL 125 mL/hr lactated ringers infusion Started 05/21/2016 8:43 AM CDT 1,000 mL 50 mL/hr 1,000 mL, Intravenous, at 50 mL/hr, CONTINUOUS, Starting on Thu05/21/16 at 0845 lidocaine-EPINEPHrine 1 Given 05/20/2016 5:28 PM CDT 10 mL Other (Comment) %-[id number] injection SOLN 10 mL 10 mL, Injection, INTRA-OP, Starting on Thu05/20/16 at 1738, Until Thu05/20/16 at 1728, For 1 dose, Intra-op oxyCODONE (ROXICODONE) immediate release Given 05/22/2016 7:48 A M CDT 10 mg tablet 5-10 mg 5-10 mg, Oral, Q4H PRN, Pain, Starting on Thu05/20/16 at 1925, Until Nataly 05/22/16 at 1545, Give PO opioid if able to take PO and pain not well controlled with other medications or interventions. Given 05/22/2016 1:44 AM CDT 5 mg Given 05/21/2016 7:47 PM CDT 5 mg polyethylene glycol (MIRALAX) oral powde r 17 g Given 05/22/2016 10:18 AM CDT 17 g 17 g, Oral, DAILY, First dose on Thu05/22/16 at 0945, Until Discontinued, Do not add to pre-thickened juices. Ok to add to liquid thickened with Thicken-Up. sennosides-docusate sodium (SENNA-S,SENNA Given 05/22/2016 7 :48 AM CDT 1 Tablet PLUS) 8.6-50 MG per tablet 1 Tab 1 Tablet, Oral, BID, First dose on Thu05/20/16 at 2000, Until Discontinued, as laxative/stimulant, stool-softening agent Given 05/21/2016 7:47 PM CDT 1 Tablet Given 05/21/2016 8:37 AM CDT 1 Tablet documented in this encounter Active and Recently Administered Medications Times are shown in CDT. Scheduled Medication Order 05/20/2016 05/21/2016 05/22/2016 acetaminophen (TYLENOL) tablet 650 mg 1949 (Given - Pr ovider: Collins Bennett RN) 0133 (Given - Provider: Tonny Yousif)0837 (Given - Provider: Luz Morales RN)1321 (Given - Provider: Adi Moreira RN)1947 (Given - Provider: Collins Bennett RN) 0144 (Given - Provider: Tonny Yousif)0748 (Given - Provider: Luz Morales RN)1345 (Due) 650 mg, Oral, Q6H (NON-STND), First dose on Thu05/20/16 at 1945 lidocaine-EPINEPHrine 1 %[id number] injection SOLN 10 m L (COMPLETED) 1728 (Given - Provider: Marti Sesay RN - Comment: INCISION SITE) 10 mL, Injection, INTRA-OP, Starting on Thu05/20/16 at 1738, Until Thu05/20/16 at 1728, For 1 dose, Intra-op polyethylene glycol (MIRALAX) oral powder 17 g (CANCELED) 1018 (Given - Provider: Luz Morales RN) 17 g, Oral, DAILY, First dose on 04/29 at 0945, Do not add to pre- thickened juices. Ok to add to liquid thickened with Thicken-Up. sennosides-docusate sodium (SENNA-S,SENNA PLUS) 8.6-50 MG per tablet 1 Tab 1950 (Given - Provider: Collins Bennett RN) 0837 (Given - Provider: Luz Morales, SIENA)1947 (Given - Provider: Collins Bennett RN) 0748 (Given - Provider: Luz Morales RN) 1 Tab, Oral, BID, First dose on 05/20 at 2000, as laxative/stimulant, stool-softening agent Continuous Medication Order 05/20/2016 05/21/2016 05/22/2016 lactated ringers infusion (CANCELED) 1950 (Started - P rovider: Collins Bennett RN) 0356 (New Bag Started - Provider: Collins Bennett RN)0843 (Infused - Provider: Luz Morales RN) 1,000 mL, Intravenous, at 125 mL/hr, CONTINUOUS, Starting Thu at 1945 lactated ringers infusion (CANCELED) 084 3 (Started - Provider: Luz Morales RN) 1,000 mL, Intravenous, at 50 mL/hr, CONTINUOUS, Starting 04/29 at 0845 PRN Medication Order 05/20/2016 05/21/2016 05/22/2016 fentaNYL (aka SUBLIMAZE) injection (COMPLETED) 1602 (G iven - Provider: bAby Howe RN) Intravenous, PRN WITH PROCEDURES, Starti ng on Thu05/20/16 at 1602, Until Thu05/20/16 at 1602 fentaNYL (aka SUBLIMAZE) injection (COMPLETED) 1609 (G iven - Provider: Abby Howe RN) Intravenous, PRN WITH PROCEDURES, Starti ng on Thu05/20/16 at 1609, Until Thu05/20/16 at 1609 oxyCODONE (ROXICODONE) immediate release tablet 5-10 m g 194 (Given - Provider: Collins Bennett RN) 0133 (Given - Provider: Collins S Afuye, R N)0657 (Given - Provider: Collins Bennett RN)1321 (Given - Provider: Adi Moreira, SIENA)1947 (Given - Provider: Collins Bennett RN) [phone] (Given - Provider: Collins Bennett RN)[phone] (Given - Provider: Luz Morales RN) 5-10 mg, Oral, Q4H PRN, Pain, Starting T ue 05/20/16 at 1925, Give PO opioid if able to take PO and pain not well controlled with other medications or interventions. polyethylene glycol (MIRALAX) oral powder 17 g 17 g, Oral, DAILY PRN, Constipation, No stool in the last two days, Starting Tu05/20/16 at 1925, Cumulative bowel medication orders. If no stool in last day start Senna-S BID PRN no stool, if no stool in last 2 days add Miralax DAILY PRN no stool, if no stool in last 3 days add bisacodyl suppository DAILY PRN until patient stools. When patient stools stop giving PRN meds and continue monitoring for b owel activity. When no stools X 1 day, b egin regimen again until patient stools. documented in this encounter Care Teams Camera Engineer Relationship Specialty Start Date End Date No Primary/Referring, Phy PCP - General 05/20/16 documented as of this encounter
--- OUTSIDE RECORDS SUMMARY | 2022-08-29 14:24 | XMS_ITS | Encounter Summary ---
:1990 Author Organization [facility] Address [address], [place] [address] Care Team Providers Name Role Phone No Primary/Referring, Phy Primary Care Provider Unavailable Reason for Visit Procedure/Equipment (Routine) - Incomplete Specialty Diagnoses / Procedures Referred By Contact Refer red To Contact Procedures Bryan Ramirez, CT Abd Pelvis W IV Cont [address] [place] [address] Referral ID Status Reason Start Date Expiration Date Visits V isits Requested Authorized [id number] Incomplete 05/20/2016 08/19/2017 1 1 Encounter Details Date Type Department Care Team Description 05/20/[address] [place] [address] Social History Tobacco Use Types Packs/Day Years Used Date Smoking Tobacco: Every Day Cigarettes 10 Alcohol Use Standard Drinks/Week Comments Yes 2 (1 standard drink = 0.6 oz pure alcoho l) Sex Assigned at Date Recorded Not on file documented as of this encounter Plan of Treatment Not on filedocumented as of this encounter Procedures Procedure Name Priority Date/Time Associated Diagnosis Comme nts CT ABD PELVIS W IV STAT 05/20/2016 4:25 PM Res ults for this CONT CDT procedure are i n the results section. documented in this encounter Visit Diagnoses Not on filedocumented in this encounter Administered Medications Inactive Administered Medications - up to 3 most recent administrations Medication Order MAR Action Action Date Dose Rate Site iohexol (aka OMNIPAQUE) 300 MG/ML Given 05/20/2016 4:21 PM CDT 1 25 mL injection 125 mL 125 mL, Intravenous, ONCE, On Thu05/20/16 at 1645, For 1 dose documented in this encounter Care Teams Maintenance Team Member Relationship Specialty Start Date End Date No Primary/Referring, Phy PCP - General 05/20/16 documented as of this encounter
--- OUTSIDE RECORDS SUMMARY | 2022-08-29 14:24 | XMS_ITS | Encounter Summary ---
:1990 Author Organization [facility] Address [address], [place] [address] Care Team Providers Name Role Phone No Primary/Referring, Phy Primary Care Provider Unavailable Encounter Details Date Type Department Care Team Description 05/20/2016 Consent for [facility] INFORM ED CONSENT Procedure/Treatment RECORD Social History Tobacco Use Types Packs/Day Years Used Date Smoking Tobacco: Every Day Cigarettes 10 Alcohol Use Standard Drinks/Week Comments Yes 2 (1 standard drink = 0.6 oz pure alcoho l) Sex Assigned at Date Recorded Not on file documented as of this encounter Plan of Treatment Not on filedocumented as of this encounter Visit Diagnoses Not on filedocumented in this encounter Care Teams Adjusto Writer Operator Relationship Specialty Start Date End Date No Primary/ReferringTima PCP - General 05/20/16 documented as of this encounter
--- OUTSIDE RECORDS SUMMARY | 2022-08-29 14:24 | XMS_ITS | Encounter Summary ---
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 without using accessory muscles. --- End of Report --- Plan of Care - Constanza London RN - 05/20/2016 7:25 PM CDT [facility] Plan of Care Note (Nursing) I have completed a skin assessment for this patient and agree with the documentation. Constanza London RN --End of Report-- documented in this encounter Active and Recently Administered Medications Times are shown in CDT. Scheduled Medication Order 05/20/2016 05/21/2016 05/22/2016 acetaminophen (TYLENOL) tablet 650 mg 194 (Given - Pr ovider: Collins Bennett RN) 0133 (Given - Provider: Tonny Yousif)0837 (Given - Provider: Luz Morales RN)1321 (Given - Provider: Adi Moreira RN)1947 (Given - Provider: Collins Bennett RN) 0144 (Given - Provider: Tonny Yousif)0748 (Given - Provider: Luz Morales RN)1345 (Due) 650 mg, Oral, Q6H (NON-STND), First dose on Thu05/20/16 at 1945 lidocaine-EPINEPHrine 1 %-1:[id number] injection SOLN 10 m L (COMPLETED) 1728 (Given - Provider: Marti Sesay RN - Comment: INCISION SITE) 10 mL, Injection, INTRA-OP, Starting on Thu05/20/16 at 1738, Until Thu05/20/16 at 1728, For 1 dose, Intra-op polyethylene glycol (MIRALAX) oral powder 17 g (CANCELED) 1018 (Given - Provider: Luz Morales, SIENA) 17 g, Oral, DAILY, First dose on 04/29 at 0945, Do not add to pre- thickened juices. Ok to add to liquid thickened with Thicken-Up. sennosides-docusate sodium (SENNA-S,SENNA PLUS) 8.6-50 MG per tablet 1 Tab 195 (Given - Provider: Collins Bennett RN) 0837 (Given - Provider: Luz Morales RN)1947 (Given - Provider: Collins Bennett RN) 0748 (Given - Provider: Luz Morales, SIENA) 1 Tab, Oral, BID, First dose on 05/20 at 2000, as laxative/stimulant, stool-softening agent Continuous Medication Order 05/20/2016 05/21/2016 05/22/2016 lactated ringers infusion (CANCELED) 1951 (Started - P rovider: Collins Bennett RN) 0356 (New Bag Started - Provider: Collins Bennett RN)0843 (Infused - Provider: Luz Morales, SIENA) 1,000 mL, Intravenous, at 125 mL/hr, CONTINUOUS, Starting Thu at 1945 lactated ringers infusion (CANCELED) 084 3 (Started - Provider: Luz Morales, SIENA) 1,000 mL, Intravenous, at 50 mL/hr, CONTINUOUS, Starting 04/29 at 0845 PRN Medication Order 05/20/2016 05/21/2016 05/22/2016 fentaNYL (aka SUBLIMAZE) injection (COMPLETED) 1602 (G iven - Provider: Abby Howe, SIENA) Intravenous, PRN WITH PROCEDURES, Starti ng on Thu05/20/16 at 1602, Until Thu05/20/16 at 1602 fentaNYL (aka SUBLIMAZE) injection (COMPLETED) 1609 (G iven - Provider: Abby Howe, SIENA) Intravenous, PRN WITH PROCEDURES, Starti ng on Thu05/20/16 at 1609, Until Thu05/20/16 at 1609 oxyCODONE (ROXICODONE) immediate release tablet 5-10 m g 1948 (Given - Provider: Collins Bennett, SIENA) 0133 (Given - Provider: Collins Bennett, Tonny N)0657 (Given - Provider: Collins Bennett RN)1321 (Given - Provider: Adi Moreira RN)194 (Given - Provider: Collins Bennett RN) 0144 (Given - Provider: Collins Bennett RN)0748 (Given - Provider: Luz Morales RN) 5-10 mg, Oral, Q4H PRN, Pain, Starting T 05/20/16 at 1925, Give PO opioid if able to take PO and pain not well controlled with other medications or interventions. polyethylene glycol (MIRALAX) oral powder 17 g 17 g, Oral, DAILY PRN, Constipation, No stool in the last two days, Starting Thu05/20/16 at 1925, Cumulative bowel medication orders. If [...] stools. documented in this encounter Care Teams Knowledge Analyst Relationship Specialty Start Date End Date No Primary/Referring, Phy PCP - General 05/20/16 documented as of this encounter
--- OUTSIDE RECORDS SUMMARY | 2022-08-29 14:24 | XMS_ITS | Encounter Summary ---
:1990 Author Organization [facility] Address [address] [place] [address] Care Team Providers Name Role Phone No Primary/Referring, Phy Primary Care Provider Unavailable Reason for Visit Procedure/Equipment (Routine) - Incomplete Specialty Diagnoses / Procedures Referred By Contact Refer red To Contact Procedures Bryan Ramirez, DO XR Portable Chest 1 View [address] [place] [address] Referral ID Status Reason Start Date Expiration Date Visits V isits Requested Authorized [id number] Incomplete 05/20/2016 08/19/2017 1 1 Encounter Details Date Type Department Care Team Description 05/20/2016 [facility] Canceled (Clinic Request) [address] [place] [address] Social History Tobacco Use Types Packs/Day Years [...] on filedocumented in this encounter Care Teams Department Sales Manager Relationship Specialty Start Date End Date No Primary/Referring, Tima PCP - General 05/20/16 documented as of this encounter
--- OUTSIDE RECORDS SUMMARY | 2022-08-29 14:24 | XMS_ITS | Encounter Summary ---
:1990 Author Organization [facility] Address [address], [place] [address] Care Team Providers Name Role Phone No Primary/Referring, Phy Primary Care Provider Unavailable Encounter Details Date Type Department Care Team Description 05/20/2016 Anesthesia Event [facility] Operating Room Arcelia Lo MD [address] [facility] Jose M Walsh APRN, BOTTOM LINER [address] [place], [place] [id number] [place], [place] [address] Anesthesia Record Procedure Summary Procedure Name Responsible Anesthesia Start Anesthesia Stop Anesthesiologist Time Time LAPAROSCOPIC Arcelia Lo MD 05/20/16 1633 05/20/16 1747 EXPLORATION ABDOMEN FOREIGN BODY REMOVAL Events Date Time Event Comment 05/20/2016 1633 An Start 1634 An Start Data 1642 MD/DO Present 1648 An Induction 1649 An Intubation 1702 MD/DO Present 1703 An Labs Hgb 13.6 g/dl, B G = 103 mg/dl. 1736 An Extubation Purposeful movem ent with spontaneous respirations and adequate air exchange. Suctioned and ETT removed. Transfe rred with oxygen to recovery. 1740 an stop data 1746 Care Handoff Note Airway patent . Vital signs stable. Condition unchanged. Repor t given according to policy and procedure. Elect ronically signed by Jose M Walsh APRN, BOTTOM LINER 1747 An Stop Care transferred . 1843 AN Close Name Total FENTanyl injection (aka SUBLIMAZE) 10 mL lidocaine 2% PF injection aka (XYLOCAINE) 100 mg propofol 10 mg/mL for procedural sedation (aka diPRIva n) 200 mg vecuronium bromide injection (aka NORCURON) 6 mg succinylcholine injection (aka QUELICIN) 140 mg ondansetron injection (aka ZOFRAN) 4 mg neostigmine 5 mg glycopyrrolate 0.7 mg ceFAZolin injection (aka ANCEF) 2 g albuterol sulfate HFA inhaler (aka PROAIR,VENTOLIN) 8 Puff electrolyte-A infusion (aka PLASMA-LYTE A) 1,600 mL electrolyte-A infusion (aka PLASMA-LYTE A) 600 mL Agents Name O2 Air Isoflurane () Blood No blood administrations on file. Lines, Drains, and Airways Type Details Placement Removal Peripheral IV Placement Date: 05/20/16 0000 by 05/21/16 0847 b y 05/20/16; Size Merline Yanes Caruso, Rach el K RN (Gauge): 18 G; RN Orientation: Right; Removal Date: 05/21/16; Removal Time: 08; Removal Reason: Per patient/family request; Catheter Tip: Intact Peripheral IV Placement Date: 05/20/16 0000 by 05/22/16 1341 b y 05/20/16; Size Merline Yanes Caruso, Rach el K, RN (Gauge): 18 G; RN Orientation: Left; Removal Date: 05/22/16; Removal Time: 1341; Removal Reason: Patient discharged; Catheter Tip: Intact Incision/Surgical Site 05/20/16; Abdomen; 05/20/16 0000 by 06/05 1345 by Lda, 06/05/16; 1345 Merline Yanes, Discontinue RN ETT Placement Date: 05/20/16 1649 by 05/20/16 1736 b y 05/20/16; Placement Jose M Walsh W, Cliff Walsh W, BROTHEL KEEPER, Time: 1648; Placed BROTHEL KEEPER, AN BOTTOM LINER By: BOTTOM LINER; Induction Type: Pre-O2, IV, RSI, Cricoid Pressure; ETT Type: ETT; Orientation: Right; Depth Secured (cm): 23 cm; Cuffed: Cuffed; Cuff Volume: 6 mL; Intubation Method: Video laryngoscopy; Cormack_Lehane Glottic Grade: Grade 1; Glottic View: Cords Open, Cords Clear; Blade: Glidescope; Insertion attempts: 1; Difficulty: Atraumatic; Adjunct Equipment: Stylet; Placement Verification: BBSE, Positive EtCO2; Teeth and Lips Unchanged: Unchanged; Removal Date: 05/20/16; Removal Time: 1736 Indwelling Urethral 05/20/16; 1655; No; 05/20/16 1655 by 6 1729 by Catheter MARTI SESAY; Other Marti Sesay, Marti Lopez RN (RODRIGUEZ TEMP PROBE ); RN 16 Fr.; 1; No Longer Needed documented in this encounter Social History Tobacco Use Types Packs/Day Years Used Date Smoking Tobacco: Every Day Cigarettes 10 Alcohol Use Standard Drinks/Week Comments Yes 2 (1 standard drink = 0.6 oz pure alcoho l) Sex Assigned at Date Recorded Not on file documented as of this encounter Miscellaneous Notes Anesthesia Postprocedure Evaluation - Arcelia Lo MD - 05/20/2016 5:44 PM CDT [facility] Anesthesia Post-op Note Patient: Vijaya Soto Post-Op Diagnosis: Acute foreign body of abdominal wall Procedure Performed: Procedure(s): LAPAROSCOPIC EXPLORATION ABDOMEN FOREIGN BODY REMOVAL Anesthesia Type: General Post-op vital signs: BP 138/93 mmHg Pulse 104 Resp 15 SpO2 97% Pain Score: Post-op assessment: No anesthesia complication. Patient location: PACU Airway Status: Patent Cardiovascular function: Satisfactory Hydration status: Satisfactory PONV: None Level of Consciousness: Awake Fully Participates Postop Assessment: Patient tolerated procedure well. Arcelia Lo MD 05/20/2016 5:44 PM Anesthesia Preprocedure Evaluation - Arcelia Lo MD - 05/20/2016 5:19 PM CDT [facility] Anesthesia Pre-op Evaluation Procedure: Procedure(s): LAPAROSCOPIC EXPLORATION ABDOMEN HPI: 89 y.o. old unknown with Acute foreign body of abdominal wall NPO Status: No Known Allergies No past medical history on file. There is no problem list on file for this patient. No past surgical history on file. No outpatient prescriptions have been marked as taking for the 05/20/16 encounter (Hospital Encounter). Current Facility-Administered Medications Medication Dose Route Frequency ??? iopromiade (aka ULTRAVIST) 50 mL in sodium chloride 0.9 % 50 mL Intra-Op ??? tetanus toxoid-reduced diphtheria toxoid-acellular pertussis vaccine adsorbed (aka BOOSTRIX) injection 0.5 mL 0.5 mL Intramuscular Once Facility-Administered Medications Ordered in Other Encounters Medication Dose Route Frequency ??? ceFAZolin (aka ANCEF) injection ??? electrolyte-A (PLASMA-LYTE A) infusion ??? electrolyte-A (PLASMA-LYTE A) infusion ??? fentaNYL (aka SUBLIMAZE) injection Intravenous ??? lidocaine 2% PF (aka XYLOCAINE) 2 % injection ??? propofol (aka diPRIvan) injection Intravenous ??? succinylcholine (aka QUELICIN) injection ??? vecuronium (aka NORCURON) injection Intravenous Labs: Lab Results Component Value Date/Time SODIUM 141 05/20/2016 03:59 PM POTASSIUM 4.1 05/20/2016 03:59 PM CHLORIDE 108 05/20/2016 03:59 PM CO2 21 05/20/2016 03:59 PM BUN 13 05/20/2016 03:59 PM CREATININE 1.03 05/20/2016 03:59 PM GLUCOSE 105 05/20/2016 03:59 PM Lab Results Component Value Date/Time WBC 11.2 05/20/2016 03:59 PM HGB 15.3 05/20/2016 03:59 PM HCT 44.2 05/20/2016 03:59 PM PLTS 315 05/20/2016 03:59 PM INR (no units) Date Value 05/20/2016 1.0 No results found for: HCGQUANT Urine : Urine : Blood Bank: ABO/RH(D) (no units) Date Value 05/20/2016 O POSITIVE ANTIBODY SCREEN (no units) Date Value 05/20/2016 NEGATIVE EKG: No results found for this or any previous visit. Physical Exam: BP 138/93 mmHg Pulse 104 Resp 15 SpO2 97% Assessment/Plan: Review of Systems Patient does not have GERD. Patient is not a smoker. The patient denies alcohol use. Patient denies any recent URI. History of PONV: No. History of motion sickness: No. Patient denies any personal or family history of anesthesia complications. Exam Mental Status: Alert and oriented. Mallampati score: II (Two). Dentition: Normal.Cardiac Exam: Regular rate and rhythm. Respiratory Exam: Breath sounds clear to auscultation Assessment ASA Status: 2 Emergent. Plan Anesthesia type: General, RSI and ETT Induction: Intravenous and Propofol Maintenance: Balanced Postoperative pain management: Plan for postoperative opioid use Anesthetic plan, risks, benefits and alternatives discussed with: Patient and Implied Consent/Emergency Possibility of blood products discussed. Additional equipment needed: 2nd IV H&P Reviewed and Patient examined, no change observed IV access Antibiotics per surgery Arcelia Lo MD 05/20/2016 5:19 PM documented in this encounter Plan of Treatment Not on filedocumented as of this encounter Visit Diagnoses Not on filedocumented in this encounter Administered Medications Inactive Administered Medications - up to 3 most recent administrations Medication Order MAR Action Action Date Dose Rate Site ALBUterol sulfate HFA inhaler Given 05/20/2016 5:30 PM CDT 4 Puffs Starting on Thu05/20/16 at 1730, Until Thu05/20/16 at 1748 Given 05/20/2016 5:24 PM CDT 4 Puffs ceFAZolin (aka ANCEF) injection Given 05/20/2016 5:00 PM CDT 2 g Starting on Thu05/20/16 at 1700 electrolyte-A (PLASMA-LYTE A) infusion Started 05/20/2016 5:00 PM CDT Starting on Thu05/20/16 at 1633 Started 05/20/2016 4:33 PM CDT electrolyte-A (PLASMA-LYTE A) infusion Started 05/20/2016 5:00 PM CDT Starting on Thu05/20/16 at 1700 fentaNYL (aka SUBLIMAZE) injection Given 05/20/2016 5:39 PM CDT 1 mL Intravenous, Starting on Thu05/20/16 at 1639 Given 05/20/2016 5:37 PM CDT 1 mL Given 05/20/2016 5:25 PM CDT 1 mL glycopyrrolate (aka ROBINUL) injection Given 05/20/2016 5:22 PM CDT 0.7 mg Intravenous, Starting on Thu05/20/16 at 1722 lidocaine 2% PF (aka XYLOCAINE) 2 % inje ction Given 05/20/2016 4:48 PM CDT 100 mg Starting on Thu05/20/16 at 1648, Until Thu05/20/16 at 1748 neostigmine (aka PROSTIGMINE) injection Given 05/20/2016 5:22 PM CDT 5 mg Intravenous, Starting on Thu05/20/16 at 1722, Until Thu05/20/16 at 1748 ondansetron (aka ZOFRAN) injection Given 05/20/2016 5:18 PM CDT 4 mg Intravenous, Starting on Thu05/20/16 at 1718, Until Thu05/20/16 at 1748 propofol (aka diPRIvan) injection Given 05/20/2016 4:48 PM CDT 200 mg Intravenous, Starting on Thu05/20/16 at 1648 succinylcholine (aka QUELICIN) injection Given 05/20/2016 4:48 PM CDT 140 mg Starting on Thu05/20/16 at 1648, Until Thu05/20/16 at 1748 vecuronium (aka NORCURON) injection Given 05/20/2016 5:05 PM CDT 6 mg Intravenous, Starting on Thu05/20/16 at 1705 documented in this encounter Care Teams Counterintelligence Analyst Relationship Specialty Start Date End Date No Primary/Referring, Phy PCP - General 05/20/16 documented as of this encounter
--- OUTSIDE RECORDS SUMMARY | 2022-08-29 14:24 | XMS_ITS | Encounter Summary ---
:1990 Author Organization [facility] Address [address] [place] [address] Care Team Providers Name Role Phone No Primary/Referring, Phy Primary Care Provider Unavailable Reason for Visit Procedure/Equipment (Routine) - Incomplete Specialty Diagnoses / Procedures Referred By Contact Refer red To Contact Procedures Bryan Ramirez, XR Portable Chest 1 View [address] [place] [address] Referral ID Status Reason Start Date Expiration Date Visits V isits Requested Authorized [id number] Incomplete 05/20/2016 08/19/2017 1 1 Encounter Details Date Type Department Care Team Description 05/20/2016 [facility] [address] [place] [address] Social History Tobacco Use Types Packs/Day Years Used Date Smoking Tobacco: Every Day Cigarettes 10 Alcohol Use Standard Drinks/Week Comments Yes 2 (1 standard drink = 0.6 oz pure alcoho l) Sex Assigned at Date Recorded Not on file documented as of this encounter Plan of Treatment Not on filedocumented as of this encounter Procedures Procedure Name Priority Date/Time Associated Diagnosis Comme nts XR PORTABLE CHEST 1 STAT 05/20/2016 4:07 PM Re sults for this VIEW CDT procedure are i n the results section. documented in this encounter Results XR Portable Chest 1 View (05/20/2016 4:07 [...] are clear. No pneumothorax. IMPRESSION: Negative chest. Bryan Ramirez DO RAD PORTABLE documented in this encounter Visit Diagnoses Not on filedocumented in this encounter Care Teams Bow Maker Custom Relationship Specialty Start Date End Date No Primary/Referring, Phy PCP - General 05/20/16 documented as of this encounter
[2022-08-29 14:33] LABS: Basophils Absolute Auto 0.02 K/uL (0.00-0.30); Basophils Percent Auto 0.2 % (0.0-3.0); Eosinophils Absolute Auto 0.14 K/uL (0.00-0.50); Eosinophils Percent Auto 1.7 % (0.0-7.0); Hematocrit 39.7 % (37.0-53.0); Hemoglobin* 13.4 gm/dL (13.5-17.5); Immature Granulocytes Abs Auto 0.01 K/uL (0.00-0.30); Immature Granulocytes Pct Auto 0.1 %; Lymphocytes Absolute Auto 2.07 K/uL (0.90-2.90); Lymphocytes Percent Auto 24.8 % (20-44); Mean Corpuscular HGB Conc 34 gm/dL (32-36); Mean Corpuscular Hemoglobin 30 pg (26-34); Mean Corpuscular Volume 89 fL (80-100); Neutrophils Absolute Auto 5.35 K/uL (1.7-7.0); Neutrophils Percent Auto 64.2 % (42.0-72.0); Platelet Count* 362 K/uL (140-440); RDW Coefficient of Variation % 12.5 % (11.5-15.5); Red Blood Count 4.46 m/uL (4.30-5.90); White Blood Count* 8.34 K/uL (4.50-11.00)
[2022-08-29 14:40] LABS: Slide Review Reflex No
[2022-08-29 14:45] LABS: Chloride* 109 mmol/L (96-114); Sodium* 140 mmol/L (135-149)
[2022-08-29 14:48] LABS: Blood Urea Nitrogen* 11 mg/dL (5-24); Calcium* 8.9 mg/dL (8.4-10.6); Carbon Dioxide* 23 mmol/L (20-32); Creatinine* 0.6 mg/dL (0.5-1.5); Estimated Glomerular Filt Rate 131 ml/min; Glucose* 92 mg/dL (60-115)
[2022-08-29] MEDS: HYDROmorphone 0.5 mg/0.5 ml inj IVP (14:57)
[2022-08-29] MEDS: ONDANSETRON 2 MG/ML inj 4 MG IVP (14:59)
== END 2022-08-29 16:29 | disposition home or self-care (01) ==
PROVIDERS: Emergency Provider Emergency Medicine Emergency Medical Services
DX: K43.9 Ventral hernia without obstruction or gangrene (principal)
CPT/HCPCS: 36415; 74177; 80048; 81003; 81015; 85025; 96374; 96375; 99284; 99285; J1170; J2405; Q9967

== ENCOUNTER 2022-09-29 09:11 | Emergency (ER) | payer OTHER, SELFPAY ==
[2022-09-29 09:25] VITALS: BP 137/74; PULSE 76; RESP 24; TEMP 36.6; O2SAT 97; BMI 48.7
--- NOTE | 2022-09-29 09:43 | CRLHL7_ITS ---
For Patients: As a result of the Cures Act, medical imaging exams and procedure reports are released immediately into your electronic medical record. You may view this report before your referring provider. If you have questions, please contact your health care provider. INDICATION: Fall. Injury. TECHNIQUE: Right knee 3 views. IMPRESSION: Anatomic alignment. Linear lucency in the anterior cortex of the patella probably a nutrient foramen. No signs for acute fracture. Joint spaces are unremarkable. Dictated by Mingo Simmons MD @ 09/29/2022 11:32:20 AM (Electronically Signed)
--- NOTE | 2022-09-29 11:28 | ED.NURSE ---
biztalk consultant used for nurse and dr interactions. used for discharge.
--- NOTE | 2022-09-29 11:36 | ED.GENADULT ---
HPI - General Adult General Date Seen: 09/29/22 Chief complaint: Extremity Pain/Injury, Lower Stated complaint: Feet pain Time Seen by Provider: 09/29/22 10:23 Source: patient and acute care registered nurse Mode of arrival: ambulatory Limitations: language barrier History of Present Illness HPI narrative: Patient is a 32-year-old male who says he has been having problems with his right knee for a month or so. He says he was walking and he felt a pop about a month ago. Then he was having pain with walking. Over the past few weeks it had gotten better and was not hurting anymore. Yesterday however he says he slipped and twisted the knee and now he is having pain again in the medial knee. It hurts with walking and with bending the knee. It also hurts when he is sitting. He has not noted any swelling. He has not noted any significant locking but sometimes it feels like it gives way little bit. 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 Patient is [place]-speaking, history was obtained with the assistance of a vegetable ii farmworker. General health is otherwise good. Denies allergies. Related Data Home Medications Medication Instructions Recorded Confirmed No Known Home Medications 09/17/22 09/17/22 Allergies Allergy/AdvReac Type Severity Reaction Status Date / Time No Known Drug Allergies Allergy Verified 09/17/22 11:40 Review of Systems Status of ROS: Reports: 6 or more systems reviewed and unremarkable except as noted in History and below [facility] Social History Smoking Status: Never smoker Do you use any of these nicotine containing products: None Second hand tobacco smoke exposure: Yes How often do you have a drink containing alcohol: monthly or less How many standard drinks containing alcohol do you have on a typical day: 3 or 4 How often do you have six or more drinks on one occasion: Less than monthly AUDIT-C Alcohol total score: 3 Non-prescribed substance use: denies use service: No Exam Narrative: Exam Narrative: Vital signs reviewed In general, an alert, well-appearing middle-aged male. Extremities: Examination of the right lower extremity shows a normal appearing knee. No erythema or effusion. Some tenderness along the medial joint line. Range of motion is full although he has some discomfort in the medial knee with full flexion. Cayla's is negative. Joint is stable with varus and valgus testing but he has some discomfort in the medial joint with valgus stress. Distal CMS is normal. Left lower extremity is normal. Skin is warm and dry, no erythema, warmth, rashes. Const: Vital Signs, click to edit/add: Vital Signs - 24 hr 09/29/22 09:25 Temperature 98 F Pulse Rate [Pulse Oximeter] 76 Respiratory Rate 24 Blood Pressure [Ri ght Forearm] 137/74 Pulse Oximetry 97 Oxygen Delivery Me thod Room Air Documenting provider has reviewed patient's vital signs: yes Course Course Hospital Course: I did x-rays of the right knee which by my review are negative for acute bony pathology. Final radiology report is likewise negative. Discussed with him I think he probably has a sprain of the knee along the medial collateral ligament. For now would recommend conservative measures, ibuprofen, ice several times a day, and we placed an Víctor wrap for comfort. He has the next couple of months off of work which should be ample time for this to recover. If it is not responding well to conservative measures in the next couple weeks, orthopedic follow-up would be reasonable. Vital Signs Vital signs: Initial Vital Signs Temperature 98 F 09/29/22 09:25 Temperature Source Temporal Artery Scan 09/29/22 09:25 Pulse Rate 76 09/29/22 09:25 Pulse Rhythm 09/29/22 09:25 Respiratory Rate 24 09/29/22 09:25 Blood Pressure 137/74 09/29/22 09:25 Blood Pressure Mean 95 09/29/22 09:25 Blood Pressure Position Supine 09/29/22 09:25 Pulse Oximetry 97 09/29/22 09:25 Oxygen Delivery Method 09/29/22 09:25 Vital Signs Temperature 98 F 09/29/22 09:25 Pulse Rate 76 09/29/22 09:25 Respiratory Rate 24 09/29/22 09:25 Blood Pressure 137/74 09/29/22 09:25 Pulse Oximetry 97 09/29/22 09:25 Oxygen Delivery Method 09/29/22 09:25 Temperature 98 F 09/29/22 09:25 Pulse Rate 76 09/29/22 09:25 Respiratory Rate 24 09/29/22 09:25 Blood Pressure 137/74 09/29/22 09:25 Pulse Oximetry 97 09/29/22 09:25 Oxygen Delivery Method 09/29/22 09:25 Discharge Plan Discharge Clinical Impression: Knee sprain Patient Disposition: Home, Self-Care Condition: Stable Instructions: Knee Sprain (ED) Additional Instructions: Ice several times a day, ibuprofen 400 mg 3 times daily. If not improving over the next 2 weeks, orthopedic follow-up. [phone] to schedule. Víctor wrap as needed for comfort. Prescriptions: No Action No Known Home Medications Follow Up/Referrals: Provider,Not a Local [Primary Care Provider] - Stand Alone Forms: [employer] Info Instructions
== END 2022-09-29 11:00 | disposition home or self-care (01) ==
LOC: ED 10:47
PROVIDERS: Emergency Provider Emergency Medicine
DX: S83.411A Sprain of medial collateral ligament of right knee, initial encounter (principal); W18.40XA Slipping, tripping and stumbling without falling, unspecified, initial encounter; Y93.9 Activity, unspecified; Y92.9 Unspecified place or not applicable; Y99.9 Unspecified external cause status
CPT/HCPCS: 73562; 99283; 99284

== ENCOUNTER 2022-10-16 08:52 | Day surgery (SDC) | payer OTHER, SELFPAY ==
[2022-10-16] VITALS (16 sets, daily range): BP systolic 109–148; BP diastolic 64–99; PULSE 88–109; RESP 16–24; TEMP 36.7–37.2; O2SAT 90–98; BMI 46.3
[2022-10-16] MEDS: SODIUM CHLORIDE 0.9 % (FLUSH) 10 ML SYRINGE IVF (09:40)
[2022-10-16] MEDS: LACTATED RINGERS 1000 ML 1,000 ML 100 ML IV ×2 (09:40→11:45)
--- NOTE | 2022-10-16 09:54 | SUR.PREOP ---
Home covid test negative
[2022-10-16] MEDS: BUPIVACAINE 0.25% 30 ML INJECTION (11:00)
--- NOTE | 2022-10-16 11:41 | W.ANESCHARGE ---
Anesthesia Charges Start Date/Time Anesthesia Start Date: 10/16/22 Anesthesia Start Time: 11:12 Stop Date/Time Anesthesia Stop Date: 10/16/22 Anesthesia Stop Time: 13:26 Summary Emergency: No
--- NOTE | 2022-10-16 13:00 | W.ANESCHARGE ---
Anesthesia Charges Start Date/Time Anesthesia Start Date: 10/16/22 Anesthesia Start Time: 11:12 Stop Date/Time Anesthesia Stop Date: 10/16/22 Anesthesia Stop Time: 13:26 Summary Emergency: No
--- NOTE | 2022-10-16 13:21 | P.GSOP_ITS ---
Operative Note Date of procedure: 10/16/22 Pre-op diagnosis: Umbilical and Epigastric Hernia Post-op diagnosis: Same Type of Procedure: Open umbilical and epigastric hernia repair Indications: Patient is a 32 yo M who presented to clinic with a symptomatic umbilical and epigastric hernia. Different treatment options were reviewed at length including observation vs surgical repair. Risks and benefits of operative intervention were discussed at length with the patient, including but not limited to: bleeding, infection, risk of damage to surrounding structures, risk of recurrence and possible need for additional procedures. Additionally, we reviewed lifting restrictions of no greater than 20 lb for 6 weeks. All questions and concerns were addressed with patient agreeing to proceed. Procedure Description: After discussing the risks and benefits of the procedure, the patient signed informed consent.? The operative site was marked and the patient was brought to the operating room and placed on the operating table in supine position.? Care was taken to pad the patient's pressure points.?? The patient was then intubated by anesthesia.?? The operative site was then prepped and draped in the usual sterile fashion.? A time-out was then performed. A curvilinear incision was made at the umbilicus. Dissection was carried down into the subcutaneous tissue using cautery. there was a large amount of incarcerated preperitoneal fat within the fascial defect. The hernia sac was encountered and care was taken to not enter it. Dissection was taken down to the fascia, and the umbilical stock was carefully dissected off of the hernia sac. Once the hernia sac was dissected out circumferentially, it was reduced. The fascial edges were then cleared circumferentially. The umbilical hernia defect was approximately 3 cm in size. Superior to this was an additional 1 cm fascial defect. The bridge of fascia connecting the 2 defects was taken down. The resulting hernia was 6 cm in size and so the decision was made to use a piece of mesh. A preperitoneal pocket was created using a combination of blunt d issection and cautery. Hemostasis appeared adequate. Once the posterior fascia was clear, a piece of large Ventralex ST hernia mesh was placed in the preperitoneal space with care to ensure that it laid flat. This was secured into place using 2 0 PDS interrupted sutures. The tails were then trimmed and the fascial opening was closed with a running 0 Vicryl. Local anesthetic was injected into the fascia, skin and subcutaneous tissues. The umbilicus was reapproximated to the fascia. The skin was then closed with running absorbable suture. A sterile dressing was then applied. ? The patient tolerated the procedure well. Findings: Umbilical and epigastric hernia, incarcerated with pre peritoneal fat and repaired with mesh. Anesthesia: GETA Surgeon: Beatris Silver MD Estimated blood loss (mL): 10 Condition: stable Disposition: same day
[2022-10-16] MEDS: fentaNYL 100 MCG/2 ML inj 50 MCG IVP (13:31)
--- NOTE | 2022-10-16 15:09 | SUR.PHASEII ---
PATIENT TOLERATING WATER AND JUICE, REFUSED FOOD. PATIENT UP TO VOID. RATES PAIN 3 AND TOLERABLE. SATS ON ROOM AIR 90%.
--- NOTE | 2022-10-16 15:10 | SUR.PHASEII ---
ENCOURAGED PATIENT TO COUGH AND DEEP BREATHE, INSTRUCTED PATIENT ON INCENTIVE SPIROMETER.
--- NOTE | 2022-10-16 15:52 | SUR.PHASEII ---
PATIENTS SATS 95%, WAITING FOR RIDE.
== END 2022-10-16 15:55 | disposition home or self-care (01) ==
PROVIDERS: PCP Family Medicine; Visit Provider Surgery
PROC: (CPT 49594; principal; 2022-10-16 10:15)
DX: K42.0 Umbilical hernia with obstruction, without gangrene (principal); K43.6 Other and unspecified ventral hernia with obstruction, without gangrene
CPT/HCPCS: 49594; 00752; 00830; 84703; T1013; A4467; C1781; J0330; J1100; J1170; J2250; J2405; J2704; J2710; J3010; J3490; J7120

== ENCOUNTER 2022-12-01 17:45 | Emergency (ER) | payer OTHER, SELFPAY ==
[2022-12-01 17:55] VITALS: BP 158/79; PULSE 78; RESP 20; TEMP 36.7; O2SAT 95; BMI 45.1
--- NOTE | 2022-12-01 18:19 | ED_ITS ---
HPI - General Adult General Chief complaint: Post Op Complication Stated complaint: pain at sugery site Time Seen by Provider: 12/01/22 18:06 History of Present Illness HPI narrative: This 32-year-old male comes in with periumbilical abdominal pain for the past couple days. He states that he had a umbilical hernia repair done a couple months ago. He has been wearing a abdominal binder since then and has been doing well until a few days ago when he returned to work. He does not do heavy lifting at work but notices pain when he is ambulating up and down stairs. He does not have any nausea, vomiting, dysuria, or fevers. Related Data Home Medications Medication Instructions Recorded Confirmed sennosides 8.6 mg tablet (senna) 8.6 mg PO PRN 12/01/22 Previous Rx's Medication Instructions Recorded sennosides 8.6 mg capsule (senna) 8.6 mg PO DAILY PRN constipation 10/16/22 #90 caps ketorolac 10 mg tablet 10 mg PO Q8H 5 days #15 tabs 12/01/22 Allergies Allergy/AdvReac Type Severity Reaction Status Date / Time No Known Drug Allergies Allergy Verified 12/01/22 18:03 Review of Systems Status of ROS: Reports: 10 or more systems reviewed and unremarkable except as noted in History and below Narrative: Constitutional: No fevers, no weight gain or loss. Eyes: No discharge. No vision changes. HENT: No congestion, no sore throat, no ear pain. Cardiovascular: No chest pain, no palpitations. Respiratory: No shortness of breath, no wheezes, no cough. Gastrointestinal: No vomiting, no diarrhea. Periumbilical abdominal pain as described above. Genitourinary: No dysuria, no hematuria. Musculoskeletal: Normal range of motion. Skin: No rashes, no pruritis. Neurological: No dizziness, weakness, sensory change, speech change. Endo/Heme/Allergies: No bruising or bleeding. No polydipsia. Pysch: no suicidality, no anxiety, no insomnia. All other systems reviewed and are negative. 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 HEENT: Normocephalic, atraumatic. Neck: Normal range of motion. Nontender. Supple. Heart: Regular. No murmurs. Normal rate. Intact distal pulses. Lungs: Clear to auscultation. No chest discomfort. No wheezes, rhonchi, or r ales. Abdomen: Normal bowel sounds. Tenderness is reproducible when palpating around the surgical site at his umbilicus. No rebound tenderness. Genitalia: Deferred. Back: No midline tenderness. Normal range of motion. Extremities: Normal range of motion. No injury. Skin: Intact. No rash. Warm. No erythema or pallor. Neurologic: No altered sensation. No weakness. Alert and oriented. Psychiatric: No suicidality. No anxiety or depression. No insomnia. Nursing notes and vitals signs are reviewed. Const: Vital Signs, click to edit/add: Vital Signs - 24 hr 12/01/22 17:55 Temperature 98.1 F Pulse Rate [Right Pulse Oximeter] 78 Respiratory Rate 20 Blood Pressure [Ri ght Upper Arm] 158/79 H Pulse Oximetry 95 Oxygen Delivery Me thod Room Air Course Vital Signs Vital signs: Initial Vital Signs Temperature 98.1 F 12/01/22 17:55 Temperature Source Temporal Artery Scan 12/01/22 17:55 Pulse Rate 78 12/01/22 17:55 Respiratory Rate 20 12/01/22 17:55 Blood Pressure 158/79 H 12/01/22 17:55 Blood Pressure Mean 105 12/01/22 17:55 Blood Pressure Position Sitting 12/01/22 17:55 Pulse Oximetry 95 12/01/22 17:55 Oxygen Delivery Method 12/01/22 17:55 Vital Signs Temperature 98.1 F 12/01/22 17:55 Pulse Rate 78 12/01/22 17:55 Respiratory Rate 20 12/01/22 17:55 Blood Pressure 158/79 H 12/01/22 17:55 Pulse Oximetry 95 12/01/22 17:55 Oxygen Delivery Method 12/01/22 17:55 Temperature 98.1 F 12/01/22 17:55 Pulse Rate 78 12/01/22 17:55 Respiratory Rate 20 12/01/22 17:55 Blood Pressure 158/79 H 12/01/22 17:55 Pulse Oximetry 95 12/01/22 17:55 Oxygen Delivery Method 12/01/22 17:55 Medical Decision Making MDM Narrative Medical decision making narrative: This patient had an umbilical hernia repair a couple months ago and now has returned to work. He continues to wear an abdominal binder. With increased activity a work is now reporting some pain in the umbilicus area. He states that he has not taken any pain medicine for this. His vital signs and exam are reassuring. I did discuss lab and imaging options with the patient which were declined in a process of shared decision making. The patient was agreeable to received prescription for medicine for pain. A prescription for Toradol is provided. He is encouraged also to use ibuprofen as needed and directed. Most likely his discomfort is present with new activity causing some pain in the area of the surgery. He is showing no sign of infection or abscess. There is no sign of acute abdomen. Discharge Plan Discharge Clinical Impression: Abdominal pain Patient Disposition: Home, Self-Care Condition: Stable Additional Instructions: Take medication as needed and indicated. Follow up with MD or return if worsening symptoms happen. Prescriptions: New ketorolac 10 mg tablet 10 mg PO Q8H 5 Days Qty: 15 0RF No Action senna 8.6 mg capsule 8.6 mg PO DAILY PRN (Reason: constipation) Qty: 90 0RF sennosides [senna] 8.6 mg tablet 8.6 mg PO PRN Label Comments: TAKE 1 TABLET BY MOUTH DAILY NEEDED Follow Up/Referrals: Phill Conde MD [Primary Care Provider] - Stand Alone Forms: [employer] Info Instructions
== END 2022-12-01 19:00 | disposition home or self-care (01) ==
LOC: ED 19:11
PROVIDERS: Emergency Provider Emergency Medicine Emergency Medical Services; PCP Family Medicine
DX: R10.9 Unspecified abdominal pain (principal)
CPT/HCPCS: 99283; 99284

== ENCOUNTER 2024-03-08 08:38 | Emergency (ER) | payer OTHER, SELFPAY ==
[2024-03-08 08:47] VITALS: BP 122/82; PULSE 72; RESP 18; TEMP 37.1; O2SAT 94; BMI 46.4
--- NOTE | 2024-03-08 08:55 | CRLHL7_ITS ---
For Patients: As a result of the Century Cures Act, medical imaging exams and procedure reports are released immediately into your electronic medical record. You may view this report before your referring provider. If you have questions, please contact your health care provider. INDICATION: a.m. Headache for 1 month TECHNIQUE: CT head without contrast. COMPARISON: None. FINDINGS: CSF spaces: Within normal limits for age. Brain parenchyma: The brown-white differentiation is normal. No sign of mass, hemorrhage, or midline shift. Skull base and calvarium: Mucosal thickening paranasal sinuses. The visualized orbits are grossly unremarkable. No skull fractures. IMPRESSION: Mild sinus disease, otherwise unremarkable noncontrast head CT. Please note that all CT scans at this facility use dose modulation, iterative reconstruction, and/or weight-based dosing when appropriate to reduce radiation dose to as low as reasonably achievable. Dictated by Kenrick Mayberry MD @ 03/08/2024 9:28:59 AM (Electronically Signed)
--- NOTE | 2024-03-08 08:56 | ED.GENADULT ---
HPI - General Adult General Date Seen: 03/08/24 Chief complaint: Headache/Migraine Stated complaint: headache, lump on head Time Seen by Provider: 03/08/24 08:54 Source: patient, RN notes reviewed and [employer] Mode of arrival: ambulatory Limitations: language barrier History of Present Illness HPI narrative: Patient is a 33-year-old male, [place] speaking, who presents for evaluation of left-sided headache which he says is present every morning for the past month. He says the right side of his head is unaffected. He feels like there is a lump on the left side of his head which gets better when he takes a cold shower. He denies problems with fevers, nausea, vomiting or other neurologic changes. He takes Tylenol some days. He also has a little bit of pain in his thoracic back just to the left of the spine. No respiratory complaints or cough. Does not have primary care. No current tobacco or alcohol use. Related Data Allergies Allergy/AdvReac Type Severity Reaction Status Date / Time No Known Drug Allergies Allergy Verified 03/08/24 08:47 Review of Systems Status of ROS: Reports: 10 or more systems reviewed and unremarkable except as noted in History and below [facility] Medical History Umbilical hernia ?K42.9 - Umbilical hernia without obstruction or gangrene (ICD-10) Plantar fasciitis ?M72.2 - Plantar fascial fibromatosis (ICD-10) Surgical History History of thoracic surgery ?Z98.890 - Other specified postprocedural states (ICD-10) Hx of appendectomy ?Z90.49 - Acquired absence of other specified parts of digestive tract (ICD-10) Family History Father Diabetes Liver disease Mother Diabetes Sister Diabetes 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 In general, an alert, well-appearing patient. Head: Normocephalic, atraumatic. I do not feel any kind of mass or swelling, no erythema, no tenderness. Eyes: Pupils are equal reactive. Extraocular movements are full. Conjunctivae are normal. ENT: Mucous membranes are moist. Throat is normal. Tongue midline. TMs normal bilaterally. Neck: Supple without lymphadenopathy. No meningeal signs. Heart: Regular rate and rhythm. No murmur or rub. Lungs: Clear bilaterally. No increased work of breathing, crackles or wheezes. Back: Reproducible tenderness in the musculature, no midline tenderness. Extremities: Well perfused. No edema. No calf tenderness. Pulses intact. Neurologic: Patient is alert and oriented to person and place. Speech is fluent. Face is symmetric. Moves all extremities equally. Affect: Normal. Skin: Warm and dry. Well perfused. Const: Vital Signs, click to edit/add: Vital Signs - 24 hr 03/08/24 08:47 Temperature 98.8 F Pulse Rate [Pulse Oximeter] 72 Respiratory Rate 18 Blood Pressure [Ri ght Upper Arm] 122/82 Pulse Oximetry 94 Oxygen Delivery Me thod Room Air Documenting provider has reviewed patient's vital signs: yes Course Course ED Course: Given duration and timing of symptoms I did recommend CT to evaluate for possible mass effect. Other considerations would be sinus disease, tension headache, myofascial headache. Right is normal CT of the head by my review is negative, read by Radiology showing mild sinus disease. No mass or mass effect. Given that he has had symptoms for months I think it is reasonable to try treating for sinusitis to see if he improves. Recommended primary care follow-up in the next week or 2 if not improving. Return any time for acute worsening such as fevers, severe headache, vomiting etcetera. Back pain seems to be muscular, ibuprofen or Tylenol as needed. Return for worsening. Prescribed Augmentin from [facility]. Vital Signs Vital signs: Initial Vital Signs Temperature 98.8 F 03/08/24 08:47 Temperature Source Temporal Artery Scan 03/08/24 08:47 Pulse Rate 72 03/08/24 08:47 Respiratory Rate 18 03/08/24 08:47 Blood Pressure 122/82 03/08/24 08:47 Blood Pressure Mean 95 03/08/24 08:47 Pulse Oximetry 94 03/08/24 08:47 Oxygen Delivery Method Room Air 03/08/24 08:47 Vital Signs Temperature 98.8 F 03/08/24 08:47 Pulse Rate 72 03/08/24 08:47 Respiratory Rate 18 03/08/24 08:47 Blood Pressure 122/82 03/08/24 08:47 Pulse Oximetry 94 03/08/24 08:47 Oxygen Delivery Method Room Air 03/08/24 08:47 Temperature 98.8 F 03/08/24 08:47 Pulse Rate 72 03/08/24 08:47 Respiratory Rate 18 03/08/24 08:47 Blood Pressure 122/82 03/08/24 08:47 Pulse Oximetry 94 03/08/24 08:47 Oxygen Delivery Method Room Air 03/08/24 08:47 Discharge Plan Discharge Clinical Impression: Headache, Sinusitis Patient Disposition: Home, Self-Care Condition: Stable Instructions: Sinusitis (ED), General Headache (ED) Additional Instructions: Your brain looks normal on the CT scan. You do have some mild sinus disease, and I think given that you had ongoing headaches it is worth treating you with an antibiotic to see if you improve. Take Augmentin as prescribed. Please make an appointment to follow-up in clinic if your headaches persist. Return to the ER at any time for acute worsening such as fever, vomiting, severe uncontrolled pain. Rivas cerebro parece normal en la tomograf?a computarizada. Tiene amrik enfermedad leve de los senos nasales y creo que, dado que ten?a peewee de david continuos, shmuel la cottrell tratarlo con un antibi?judi para berny si mejora. [place] Augmentin seg?n lo prescrito. Programe amrik saqib para seguimiento en la cl?lyric si ernesto peewee de david persisten. Regrese a la adam de emergencias en cualquier momento si empeora agudamente, jayson fiebre, v?mitos o dolor intenso e incontrolable. Follow Up/Referrals: Phill Conde MD [Primary Care Provider] - Stand Alone Forms: [employer] Info Instructions
--- OUTSIDE RECORDS SUMMARY | 2024-03-08 09:31 | XMS_ITS | Clinical Summary ---
Author Organization [facility] Address [address] [place] [address] Care Team Providers Care Purchasing Administrative Assistant Name Role Phone No Primary/Referring, Phy Primary Care Provider Unavailable Source Comments You are receiving this document as you are listed as the primary care provider,follow-up provider, or the patient has been referred to you for consultation.This is in compliance with the Medicare andMedicaid EHR Incentive Program,which states Providers who transition their patient to another setting of careor provider of care or refers their patient to another provider of care shouldprovide summary care record for each transition of care or referral. [facility] Allergies No known active allergies Medications Medication Sig Dispensed Refills Start Date End Date Status oxyCODONE (ROXICODONE) 5 MG immediate release tablet Take 1-2 Tabs by mouth every 6 hours as needed for Pain. 30 Tab 0 05/22/2016 Active polyethylene glycol (MIRALAX) packet Take 1 Packet by mouth daily as needed for Constipation (No stool in the last two days). 10 Each 0 05/22/2016 Active sennosides-docusate sodium (SENNA-S,SENNA PLUS) 8.6-50 MG per tablet Take 1 Tab by mouth two times a day. 14 Tab 0 05/22/2016 Active Social History Tobacco Use Types Packs/Day Years Used Date Smoking Tobacco: Every Day Cigarettes Tobacco Cessation:Ready to Q uit: No; Counseling Given: Yes Alcohol Use Standard Drinks/Week Comments Yes 2 (1 standard drink = 0.6 oz pur e alcohol) Sex and Gender Information Value Date Recorded Sex Assigned at Not on file Gender Identity Not on file Sexual Orientation Not on file Last Filed Vital Signs Vital Sign Reading Time Taken Comments Blood Pressure 122/68 05/22/2016 7:50 AM CDT Pulse 79 05/22/2016 7:50 AM CDT Temperature 36.6 ??C (97.8 ??F) 05/22/2016 7:50 AM CD T Respiratory Rate 20 05/22/2016 7:50 AM CDT Oxygen Saturation 96% 05/22/2016 7:50 AM CDT Inhaled Oxygen Concentration - - Weight 124.4 kg (274 lb 4 oz) 05/20/2016 7:22 PM CDT Height 165.1 cm (5' 5) 05/21/2016 8:57 AM CDT e stimate Body Mass Index 45.64 05/20/2016 7:22 PM CDT Plan of Treatment Health Maintenance Due Date Last Done Comments Hep C Screening (Preventive Services) 1988 HIV Screening (Preventive Services) 2004 Adult Preventive Visit 2006 DTaP/Tdap/Td (1 - Tdap) 2007 HepB (1) 2007 COVID-19 Vaccine ( - 2022-2 4 season) 2023 Cholesterol 2023 Influenza (Season Ended) 2024 Zoster/Shingles (1 of 2) 2038 HPV Vaccine Aged Out No longer eligi ble based on patient's age to complete this topic HepA Aged Out No longer eligi ble based on patient's age to complete this topic Hib Aged Out No longer eligi ble based on patient's age to complete this topic IPV (Polio) Aged Out No longer eligi ble based on patient's age to complete this topic MCV4 Aged Out No longer eligi ble based on patient's age to complete this topic Pneumococcal Aged Out No longer eligi ble based on patient's age to complete this topic Advance Directives * Full Code (Latest Code Status on File) Date Activated Date Inactivated Comments 05/20/2016 7:25 PM 05/22/2016 3:45 PM Care Teams Purchasing Administrative Assistant Relationship Specialty Start Date End Date No Primary/Referring, Phy PCP - General 05/20/16
--- OUTSIDE RECORDS SUMMARY | 2024-03-08 09:31 | XMS_ITS | Encounter Summary ---
Author Organization [facility] Address [address] [place] [address] Care Team Providers Care Optical Scientist Name Role Phone No Primary/Referring, Phy Primary Care Provider Unavailable Encounter Details Date Type Department Care Team (Late st Contact Info) Description 05/20/2016 Consent for Procedure/Treatme nt [facility] INFORMED CONSENT RECORD Social History Tobacco Use Types Packs/Day Years Used Date Smoking Tobacco: Every Day Cigarettes Alcohol Use Standard Drinks/Week Comments Yes 2 (1 standard drink = 0.6 oz pur e alcohol) Sex and Gender Information Value Date Recorded Sex Assigned at Not on file Gender Identity Not on file Sexual Orientation Not on file documented as of this encounter Plan of Treatment Not on file documented as of this encounter Visit Diagnoses Not on filedocumented in this encounter Care Teams Optical Scientist Relationship Specialty Start Date End Date No Primary/Referring, Tima PCP - General 05/20/16 documented as of this encounter
== END 2024-03-08 10:00 | disposition home or self-care (01) ==
PROVIDERS: Emergency Provider Emergency Medicine; PCP Family Medicine
DX: R51.9 Headache, unspecified (principal); J32.9 Chronic sinusitis, unspecified
CPT/HCPCS: 70450; 99284; T1013

== ENCOUNTER 2024-06-02 14:23 | Emergency (ER) | payer OTHER, SELFPAY ==
[2024-06-02 14:31] VITALS: BP 135/77; PULSE 84; RESP 16; TEMP 36.9; O2SAT 94; BMI 41.8
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
--- OUTSIDE RECORDS SUMMARY | 2024-06-02 15:55 | XMS_ITS | Encounter Summary ---
Author Organization [facility] Address [address] [place] [address] Care Team Providers Care Crm Analyst Name Role Phone No Primary/Referring, Phy Primary [...] on filedocumented in this encounter Care Teams Crm Analyst Relationship Specialty Start Date End Date No Primary/Referring, Tima PCP - General 05/20/16 documented as of this encounter
--- OUTSIDE RECORDS SUMMARY | 2024-06-02 15:55 | XMS_ITS | Clinical Summary ---
Author Organization [facility] Address [address] [place] [address] Care Team Providers Care Rubber Factory Worker Name Role Phone No Primary/Referring, Phy Primary [...] (1 - Tdap) 2007 HepB (1) 2007 Cholesterol 2023 COVID-19 Vaccine (1 - 2022-2 4 season) 2024 Influenza (#1) 2024 Zoster/Shingles (1 of 2) 2038 HPV [...] 7:25 PM 05/22/2016 3:45 PM Care Teams Rubber Factory Worker Relationship Specialty Start Date End Date No Primary/Referring, Phy PCP - General 05/20/16
== END 2024-06-02 15:55 | disposition home or self-care (01) ==
LOC: ED 15:53
PROVIDERS: Emergency Provider Emergency Medicine; PCP Family Medicine
DX: M70.41 Prepatellar bursitis, right knee (principal)
CPT/HCPCS: 99282; 99283

== ENCOUNTER 2024-06-09 15:14 | Emergency (ER) | payer OTHER, SELFPAY ==
[2024-06-09 15:19] VITALS: BP 156/74; PULSE 85; RESP 16; TEMP 37.2; O2SAT 94; BMI 44.4
--- NOTE | 2024-06-09 16:14 | CRLHL7_ITS ---
For Patients: As a result of the Cures Act, medical imaging exams and procedure reports are released immediately into your electronic medical record. You may view this report before your referring provider. If you have questions, please contact your health care provider. Indication: Knee pain. Technique: Right knee 3 views. Comparison: September 29, 2022. Findings: Bones: Alignment is normal. No fractures or bone lesions. Joint spaces: Joint spaces are well maintained. No degenerative changes. No sign of joint effusion. Soft tissues: Unremarkable. Impression: No findings to explain pain. Dictated by Aldair Victor MD @ 06/09/2024 6:08:04 PM (Electronically Signed)
--- NOTE | 2024-06-09 18:09 | ED_ITS ---
HPI - Extremity Injury (Lower) General Time Seen by Provider: 17:40 Date Seen: 06/09/24 Chief Complaint: Extremity Pain/Injury, Lower Stated Complaint: R knee pain-has gotten worse, not weight bearing Time Seen by Provider: 06/09/24 17:34 Source: patient, RN notes reviewed, old records reviewed and apartment community manager Mode of arrival: ambulatory Limitations: no limitations History of Present Illness HPI Narrative: This 33-year-old male is seen with the aid of the apartment community manager. He is complaining of pain in his anterior right knee. He started with pain about 2 w eeks ago after doing a lot of work while being on his knees. He does admit on his job that he kneels a lot on his knees. He states the knee was initially swollen but is less so now. Now it just feels like it is awkward may band differently with walking. He may feel a component of instability. He points to his anterior inferior knee area over the patellar tendon on the right knee. There is no numbness tingling. He was seen on June 03, did take the ibuprofen and did take the Keflex. He never had any fever. He was diagnosed with a infra patellar knee bursitis. Related Data Previous Rx's ?Medication ?Instructions ?Recorded cephalexin 500 mg capsule 500 mg PO QID #28 caps 06/02/24 ibuprofen 600 mg tablet 600 mg PO TID #21 tabs 06/02/24 naproxen 500 mg tablet,delayed 500 mg PO BID #30 tabs 06/09/24 release Allergies Allergy/AdvReac Type Severity Reaction Status Date / Time No Known Drug Allergies Allergy Verified 06/02/24 14:30 Review of Systems Narrative: As per HPI. 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 smoker Do you use any of these nicotine containing products: None Second hand tobacco smoke exposure: Yes How often do you have a drink containing alcohol: never How often do you have six or more drinks on one occasion: Never AUDIT-C Alcohol total score: 0 Non-prescribed substance use: denies use Caffeine: Yes (coffee) service: No Exam Const: Vital Signs, click to edit/add: Vital Signs - 24 hr 06/09/24 15:19 Temperature 98.9 F Pulse Rate [Right Pulse Oximeter] 85 Respiratory Rate 16 Blood Pressure [Ri ght Forearm] 156/74 H Pulse Oximetry 94 Oxygen Delivery Me thod Room Air This 33-year-old male is alert, interactive, no apparent distress. On inspection of his knees, note no definitive effusion. On palpation he may have just a little fullness along the patellar tendon and it is tender there. There is no joint line tenderness, flexion does increase his pain along the infrapatellar tendon area. There is no warmth, no erythema overlying the patellar tendon. The patella itself is nontender, seems to be tracking tracey lly. No pain over the medial or lateral side of the knee, no pain with ligamentous testing of the MCL or LCL. He has pain along that inferior patellar area on range of motion of the knee but not necessarily pain within the knee. Documenting provider has reviewed patient's vital signs: yes Course Course ED Course: Nursing staff had ordered an x-ray of his knee on arrival, there was a long wait for the ER due to the acuity and volume. I was able to review with him that the knee x-ray showing no acute pathology. Vital Signs Vital signs: Initial Vital Signs Temperature 98.9 F 06/09/24 15:19 Temperature Source Temporal Artery Scan 06/09/24 15:19 Pulse Rate 85 06/09/24 15:19 Pulse Rhythm Regular 06/09/24 15:19 Pulse Strength 3+ Normal 06/09/24 15:19 Respiratory Rate 16 06/09/24 15:19 Blood Pressure 156/74 H 06/09/24 15:19 Blood Pressure Mean 101 06/09/24 15:19 Blood Pressure Position Sitting 06/09/24 15:19 Pulse Oximetry 94 06/09/24 15:19 Oxygen Delivery Method Room Air 06/09/24 15:19 Vital Signs Temperature 98.9 F 06/09/24 15:19 Pulse Rate 85 06/09/24 15:19 Respiratory Rate 16 06/09/24 15:19 Blood Pressure 156/74 H 06/09/24 15:19 Pulse Oximetry 94 06/09/24 15:19 Oxygen Delivery Method Room Air 06/09/24 15:19 Temperature 98.9 F 06/09/24 15:19 Pulse Rate 85 06/09/24 15:19 Respiratory Rate 16 06/09/24 15:19 Blood Pressure 156/74 H 06/09/24 15:19 Pulse Oximetry 94 06/09/24 15:19 Oxygen Delivery Method Room Air 06/09/24 15:19 MDM - Extremity Injury (Lower) Imaging Data XR right knee: Attestation: I have reviewed the pertinent imaging results. Radiologist's impression: Patient: ORTEGA CORLEY Facility:?[facility] Patient ID:?[id number] Site Patient ID:?[id number]. Site :?[id number] Study:?XRay-Knee Right 3v-06/09/2024 5:37:15 PM Ordering Physician:Navarro Lopez Final Report: Indication: Knee pain. Technique: Right knee 3 views. Comparison: September 29, 2022. Findings: Bones: Alignment is normal. No fractures or bone lesions. Joint spaces: Joint spaces are well maintained. No degenerative changes. No sign of joint effusion. Soft tissues: Unremarkable. Impression: No findings to explain pain. Dictated by Aldair Victor MD @ 06/09/2024 6:08:04 PM (Electronic Signature) Discharge Plan Discharge Clinical Impression: Infrapatellar bursitis of right knee Patient Disposition: Home, Self-Care Condition: Stable Instructions: Knee Bursitis (ED) Additional Instructions: You need to avoid kneeling or working on your knees as much as you are able to. We will try a a different anti-inflammatory medicine. You need to follow up with Orthopedics, phone number is [phone]. Try icing this knee as much as able and elevating. Try to minimize bending of the knee. Activity Level: Light activity Prescriptions: New naproxen 500 mg tablet,delayed release (DR/EC) 500 mg PO BID Qty: 30 0RF No Action cephalexin 500 mg capsule 500 mg PO QID Qty: 28 0RF ibuprofen 600 mg tablet 600 mg PO TID Qty: 21 0RF Follow Up/Referrals: Phill Conde MD [Primary Care Provider] - Stand Alone Forms: [employer] Info Instructions
--- OUTSIDE RECORDS SUMMARY | 2024-06-09 18:52 | XMS_ITS | Encounter Summary ---
Author Organization [facility] Address [address] [place] [address] Care Team Providers Care Latent Print Examiner Name Role Phone No Primary/Referring, Phy Primary [...] on filedocumented in this encounter Care Teams Latent Print Examiner Relationship Specialty Start Date End Date No Primary/Referring, Tima PCP - General 05/20/16 documented as of this encounter
--- OUTSIDE RECORDS SUMMARY | 2024-06-09 18:52 | XMS_ITS | Clinical Summary ---
Author Organization [facility] Address [address] [place] [address] Care Team Providers Care Proposal Development Manager Name Role Phone No Primary/Referring, Phy Primary [...] 7:25 PM 05/22/2016 3:45 PM Care Teams Proposal Development Manager Relationship Specialty Start Date End Date No Primary/Referring, Phy PCP - General 05/20/16
== END 2024-06-09 19:14 | disposition home or self-care (01) ==
LOC: ED 18:51
PROVIDERS: Emergency Provider Family Medicine; PCP Family Medicine
DX: M70.51 Other bursitis of knee, right knee (principal)
CPT/HCPCS: 73562; 99283

== ENCOUNTER 2025-08-28 15:46 | Emergency (ER) | payer MEDICAID, SELFPAY ==
--- OUTSIDE RECORDS SUMMARY | 2025-08-28 15:49 | XMS_ITS | Encounter Summary ---
Author Organization [facility] Address [address] [place] [address] Care Team Providers Care Penology Professor Name Role Phone No Primary/Referring, Phy Primary [...] Recorded Sex Assigned at Not on file Legal Sex Male 6:57 AM CDT Gender Identity Not on file Sexual Orientation Not on file documented as of this encounter Plan of Treatment Not on file documented as of this encounter Visit Diagnoses Not on filedocumented in this encounter Care Teams Penology Professor Relationship Specialty Start Date End Date No Primary/ReferringTima PCP - General 05/20/16 documented as of this encounter
--- OUTSIDE RECORDS SUMMARY | 2025-08-28 15:49 | XMS_ITS | Clinical Summary ---
Author Organization [facility] Address [address] [place] [address] Care Team Providers Care Planer Feeder Name Role Phone No Primary/Referring, Phy Primary [...] [facility] Allergies No known active allergies Medications oxyCODONE (ROXICODONE) 5 MG immediate release tablet Take 1-2 Tabs by mouth every 6 hours as needed for Pain. 30 Tab 0 6 Active polyethylene glycol (MIRALAX) packet Take 1 Packet by mouth daily as needed for Constipation (No stool in the last two days). 10 Each 0 6 Active sennosides-docu sate sodium (SENNA-S,SENNA PLUS) 8.6-50 MG per tablet Take 1 Tab by mouth two times a day. 14 Tab 0 6 Active Social History Tobacco Use Types Packs/Day [...] 79 05/22/2016 7:50 AM CDT Temperature 36.6 C (97.8 F) 05/22/2016 7:50 AM CDT Respiratory Rate 20 [...] Comments Hep C Screening (Preventive Services) 1988 Tuberculosis Screening 1988 HIV Screening (Preventive Services) 2004 Adult Preventive Visit 2006 DTaP/Tdap/Td Vaccine (1 - Tdap) 2007 HepB Vaccine (1) 2007 HPV Vaccine (1 - 3-dose SCDM series) 2015 Cholesterol 2023 COVID-19 Vaccine (1 - 2024-2 6 season) 2025 Influenza Vaccine (#1) 2025 Zoster/Shingles Vaccine (1 of 2) 2038 HepA Vaccine Aged Out No longer eligi ble based on patient's age to complete this topic Hib Vaccine Aged Out No longer eligi ble based on patient's age to complete this topic IPV (Polio) Vaccine Aged Out No longe r eligible based on patient's age to complete this topic MCV4 Vaccine Aged Out No longer eligi ble based on patient's age to complete this topic Meningococcal B Vaccine Aged Out No l onger eligible based on patient's age to complete this topic Pneumococcal Vaccine Aged Out No long er eligible based on patient's age to complete this topic Advance Directives * Full Code (Latest Code Status on File) Date Activated Date Inactivated Comments 05/20/2016 7:25 PM 05/22/2016 3:45 PM Care Teams Planer Feeder Relationship Specialty Start Date End Date No Primary/Referring, Phy PCP - General 05/20/16
[2025-08-28 15:52] VITALS: BP 147/79; PULSE 92; RESP 16; TEMP 36.7; O2SAT 95; BMI 44.1
--- NOTE | 2025-08-28 16:04 | CRLHL7_ITS ---
For Patients: As a result of the Cures Act, medical imaging exams and procedure reports are released immediately into your electronic medical record. You may view this report before your referring provider. If you have questions, please contact your health care provider. INDICATION: Trauma. TECHNIQUE: CT cervical spine without contrast. COMPARISON: None. FINDINGS: Inferior aspect of C7 is excluded from field of view. It is largely included within the field of view on the chest CT performed on the same day. Normal alignment. No fracture seen. Minimal degenerative disc disease. No gross soft tissue abnormality. IMPRESSION: 1. C7 is partially excluded from field of view. No gross acute osseous abnormality of the cervical spine. Please note that all CT scans at this facility use dose modulation, iterative reconstruction, and/or weight-based dosing when appropriate to reduce radiation dose to as low as reasonably achievable. Dictated by Dontae Painter MD @ 08/28/2025 4:28:34 PM (Electronically Signed)
--- NOTE | 2025-08-28 16:04 | CRLHL7_ITS ---
For Patients: As a result of the Century Cures Act, medical imaging exams and procedure reports are released immediately into your electronic medical record. You may view this report before your referring provider. If you have questions, please contact your health care provider. INDICATION: Fall hitting head. TECHNIQUE: CT head without contrast. COMPARISON: None. FINDINGS: Brain: No intra or extra-axial fluid collection, mass or edema. Ward-white differentiation is normal. No hydrocephalus. Other: No displaced calvarial fracture. Moderate mucosal thickening within the ethmoid sinuses. IMPRESSION: No gross acute intracranial abnormality. Please note that all CT scans at this facility use dose modulation, iterative reconstruction, and/or weight-based dosing when appropriate to reduce radiation dose to as low as reasonably achievable. Dictated by Dontae Painter MD @ 08/28/2025 4:31:51 PM (Electronically Signed)
--- NOTE | 2025-08-28 16:04 | CRLHL7_ITS ---
For Patients: As a result of the Century Cures Act, medical imaging exams and procedure reports are released immediately into your electronic medical record. You may view this report before your referring provider. If you have questions, please contact your health care provider. INDICATION: Right back pain after fall. TECHNIQUE: CT chest without contrast. COMPARISON: None. FINDINGS: No consolidation or significant ground-glass. No pulmonary edema. No pleural effusion or pneumothorax. No anterior mediastinal hematoma. Subcentimeter mediastinal lymph nodes. No hilar lymphadenopathy. The heart is normal in size. No significant effusion. No significant coronary calcification. Evaluation for acute traumatic aortic injury is limited by lack of intravenous contrast. Additionally there is motion within the aortic root. The aorta is not aneurysmal. Subcentimeter axillary lymph nodes are noted. No significant inflammatory fat stranding. No hematoma within the chest wall. Images of the upper abdomen demonstrate thickening of the distal esophagus, likely due to underdistention. Prominent lymph nodes are likely reactive. Bone windows demonstrate no acute fracture. IMPRESSION: 1. No gross acute cardiopulmonary abnormality. Please note that all CT scans at this facility use dose modulation, iterative reconstruction, and/or weight-based dosing when appropriate to reduce radiation dose to as low as reasonably achievable. Dictated by Dontae Painter MD @ 08/28/2025 4:39:00 PM (Electronically Signed)
[2025-08-28 16:17] VITALS: BP 128/83; PULSE 90; RESP 18
[2025-08-28] MEDS: MORPHINE 4 MG/ML INJ IM (16:23)
--- NOTE | 2025-08-28 16:28 | ED_ITS ---
HPI - General Adult General Date Seen: 08/28/25 Chief complaint: Fall/Minor Trauma Stated complaint: fell on head, back hurts and breathing hurts Time Seen by Provider: 08/28/25 16:03 History of Present Illness HPI narrative: Patient is a 34-year-old Cymro-speaking male brought in by family for evaluation after a fall today. He was on the deck at his house, slipped and fell backwards striking his head. He reports loss of consciousness of unknown duration, it is very cold out today, I asked him if he was really cold when he woke up as if he might have been laying up there long time or if he was still warm. He says he does not remember. He notes some pain in the back of his head. He denies neck pain. He also has pain in his right posterior thoracic area with breathing. He does not feel significantly short of breath. Has no abdominal or lower back pain. No medications taken. Denies any medical history or allergies, is not anticoagulated. History is obtained with the assistance an science interpreter. Related Data Home Medications ?Medication ?Instructions ?Recorded ?Confirmed No Known Home Medications 08/28/2510/22 Allergies Allergy/AdvReac Type Severity Reaction Status Date / Time No Known Drug Allergies Allergy Verified 06/02/24 14:30 Review of Systems Status of ROS: Reports: 10 or more systems reviewed and unremarkable except as noted in History and below PFSH [facility] Medical History Umbilical hernia ?K42.9 - Umbilical hernia without obstruction or gangrene (ICD-10) Plantar fasciitis ?M72.2 - Plantar fascial fibromatosis (ICD-10) Surgical History History of thoracic surgery ?Z98.890 - Other specified postprocedural states (ICD-10) Hx of appendectomy ?Z90.49 - Acquired absence of other specified parts of digestive tract (ICD- 10) Family History Father Diabetes Liver disease Mother Diabetes Sister Diabetes 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 Breathing: Nonlabored. Lungs clear. Circulation: Pulses intact. No external bleeding. Disability: GCS 15. Secondary survey: Vital signs reviewed In general, an alert, nontoxic young man. Head: Normocephalic, atraumatic. No hematoma, abrasion, laceration. Eyes: Pupils are equal reactive. Extraocular movements full. ENT: No facial trauma. Dentition intact. Neck: No midline cervical tenderness. No anterior neck trauma. Chest: No visible signs of chest trauma. No tenderness to palpation. Heart regular rate and rhythm. Lungs clear bilaterally. Abdomen: No visible signs of trauma. Soft, nondistended, nontender to palpation. Back: No visible signs of trauma. He has some tenderness over the right lower rib cage posteriorly but no midline tenderness in the thoracic or lumbar spine. Extremities: Atraumatic and nontender to palpation. Neurologic: Alert, conversant, moves all extremities to command. Skin: Warm and dry, no abrasions or lacerations. Const: Vital Signs, click to edit/add: Vital Signs - 24 hr 08/28/25 15:52 08/28/25 16:17 08/28/25 16:30 Temperature 98.1 F Pulse Rate 90 Pulse Rate [Pulse Oximeter] 92 84 Respiratory Rate 16 18 17 Blood Pressure 128/83 Blood Pressure [Ri ght Upper Arm] 147/79 H 101/69 Pulse Oximetry 95 96 Oxygen Delivery Me thod Room Air 08/28/25 16:32 08/28/25 16:35 08/28/25 16:42 Temperature Pulse Rate 82 83 Pulse Rate [Pulse Oximeter] Respiratory Rate 18 17 Blood Pressure 101/69 121/77 Blood Pressure [Ri ght Upper Arm] Pulse Oximetry 96 95 95 Oxygen Delivery Me thod Course Course ED Course: He did want something for pain, prior to imaging results I did give him 4 mg of IM morphine. I reviewed his CT scans, I do not see evidence of intracranial hemorrhage or significant scalp hematoma, skull fracture. In the chest, I do not see pneumothorax or obvious rib fracture. Awaiting radiology report. Radiology reports reviewed and entirely negative. He is feeling improved after IM morphine here, he is ambulatory without difficulty. Further history obtained later in his course of stay is at the fall actually happened this morning at 8:00 a.m., he presented to the ER around 4. I think it is reasonable to discharge home. I did give him a few oxycodone out of [employer] to use, recommended general pain management with ibuprofen and Tylenol. Primary care follow-up if ongoing symptoms of concussion over the next few weeks or return to the ER for any acute worsening or new symptoms. Diagnosis: Concussion with loss of consciousness. Right thoracic back pain, contusion. Vital Signs Vital signs: Initial Vital Signs Temperature 98.1 F 08/28/25 15:52 Temperature Source Temporal Artery Scan 08/28/25 15:52 Pulse Rate 92 08/28/25 15:52 Respiratory Rate 16 08/28/25 15:52 Blood Pressure 147/79 H 08/28/25 15:52 Blood Pressure Mean 101 08/28/25 15:52 Blood Pressure Position Sitting 08/28/25 15:52 Pulse Oximetry 95 08/28/25 15:52 Oxygen Delivery Method Room Air 08/28/25 15:52 Vital Signs Temperature 98.1 F 08/28/25 15:52 Pulse Rate 92 08/28/25 15:52 Respiratory Rate 16 08/28/25 15:52 Blood Pressure 147/79 H 08/28/25 15:52 Pulse Oximetry 95 08/28/25 15:52 Oxygen Delivery Method Room Air 08/28/25 15:52 Temperature 98.1 F 08/28/25 15:52 Pulse Rate 83 08/28/25 16:42 Respiratory Rate 17 08/28/25 16:42 Blood Pressure 121/77 08/28/25 16:42 Pulse Oximetry 95 08/28/25 16:42 Oxygen Delivery Method Room Air 08/28/25 15:52 Medications Administered Medications: Discontinued Medications Generic Name Dose Route Start Last Admin Trade Name Freq PRN Reason Stop Dose Admin Morphine Sulfate 4 mg 08/28/25 16:15 08/28/25 16:23 Morphine 4 Mg/Ml Inj IM 08/28/25 16:16 4 mg ONCE ONE Administration Medical Decision Making Imaging Data CT scan: Attestation: I have reviewed the pertinent imaging results. Radiologist's impression: Patient: Dylan Gould MR#: [id number] : 1990 Acct:[id number] Loc: ED Service Date: 08/28/25 Attending : Ordering Physician: Vijaya Rai M.D. Date of Service: 08/28/25 Procedure(s): CT head/brain wo con Accession Number(s): [id number] cc: Vijaya Rai M.D.; Phill Conde M.D.~ For Patients: As a result of the Cures Act, medical imaging exams and procedure reports are released immediately into your electronic medical record. You may view this report before your referring provider. If you have questions, please contact your health care provider. INDICATION: Fall hitting head. TECHNIQUE: CT head without contrast. COMPARISON: None. FINDINGS: Brain: No intra or extra-axial fluid collection, mass or edema. Ward-white differentiation is normal. No hydrocephalus. Other: No displaced calvarial fracture. Moderate mucosal thickening within the ethmoid sinuses. IMPRESSION: No gross acute intracranial abnormality. Please note that all CT scans at this facility use dose modulation, iterative reconstruction, and/or weight-based dosing when appropriate to reduce radiation dose to as low as reasonably achievable. Dictated by Dontae Painter MD @ 08/28/2025 4:31:51 PM Patient: Dylan Gould MR#: [id number] : 1990 Acct:[id number] Loc: ED Service Date: 08/28/[address]: Ordering Physician: Vijaya Rai M.D. Date of Service: 08/28/25 Procedure(s): CT cervical spine wo con Accession Number(s): [id number] cc: Vijaya Rai M.D.; Phill Conde M.D.~ For Patients: As a result of the Cures Act, medical imaging exams and procedure reports are released immediately into your electronic medical record. You may view this report before your referring provider. If you have questions, please contact your health care provider. INDICATION: Trauma. TECHNIQUE: CT cervical spine without contrast. COMPARISON: None. FINDINGS: Inferior aspect of C7 is excluded from field of view. It is largely included within the field of view on the chest CT performed on the same day. Normal alignment. No fracture seen. Minimal degenerative disc disease. No gross soft tissue abnormality. IMPRESSION: 1. C7 is partially excluded from field of view. No gross acute osseous abnormality of the cervical spine. Please note that all CT scans at this facility use dose modulation, iterative reconstruction, and/or weight-based dosing when appropriate to reduce radiation dose to as low as reasonably achievable. Dictated by Dontae Painter MD @ 08/28/2025 4:28:34 PM Patient: Dylan Gould MR#: [id number] : 1990 Acct:[id number] Loc: ED Service Date: 08/28/[address]: Ordering Physician: Vijaya Rai M.D. Date of Service: 08/28/25 Procedure(s): CT chest wo [facility] Accession Number(s): [id number] cc: Vijaya Rai M.D.; Phill Conde M.D.~ For Patients: As a result of the Cures Act, medical imaging exams and procedure reports are released immediately into your electronic medical record. You may view this report before your referring provider. If you have questions, please contact your health care provider. INDICATION: Right back pain after fall. TECHNIQUE: CT chest without contrast. COMPARISON: None. FINDINGS: No consolidation or significant ground-glass. No pulmonary edema. No pleural effusion or pneumothorax. No anterior mediastinal hematoma. Subcentimeter mediastinal lymph nodes. No hilar lymphadenopathy. The heart is normal in size. No significant effusion. No significant coronary calcification. Evaluation for acute traumatic aortic injury is limited by lack of intravenous contrast. Additionally there is motion within the aortic root. The aorta is not aneurysmal. Subcentimeter axillary lymph nodes are noted. No significant inflammatory fat stranding. No hematoma within the chest wall. Images of the upper abdomen demonstrate thickening of the distal esophagus, likely due to underdistention. Prominent lymph nodes are likely reactive. Bone windows demonstrate no acute fracture. IMPRESSION: 1. No gross acute cardiopulmonary abnormality. Please note that all CT scans at this facility use dose modulation, iterative reconstruction, and/or weight-based dosing when appropriate to reduce radiation dose to as low as reasonably achievable. Dictated by Dontae Painter MD @ 08/28/2025 4:39:00 PM Discharge Plan Discharge Clinical Impression: Concussion with loss of consciousness Patient Disposition: Home, Self-Care Additional Instructions: Your CT scans today do not show any sign of significant injury to her brain or chest such as broken ribs, bruised lungs etcetera. You likely have a concussion, and makes variance headaches, dizziness, mental fogginess, fatigue, and other similar symptoms over the next couple of weeks. These usually improve over a few weeks time but if you are having significant ongoing symptoms please see your primary doctor. You can use a combination of ibuprofen 400 mg plus Tylenol 1000 mg if needed for pain over the next couple of days. I have also given you a small number of oxycodone if needed for more severe pain. Return any time if you have new or worsening symptoms. Prescriptions: No Action No Known Home Medications Follow Up/Referrals: Phill Conde MD [Primary Care Provider, Family Practice] Stand Alone Forms: [facility] Info Instructions
[2025-08-28 16:30] VITALS: BP 101/69; PULSE 84; RESP 17; O2SAT 96
[2025-08-28 16:32] VITALS: O2SAT 96
[2025-08-28 16:35] VITALS: BP 101/69; PULSE 82; RESP 18; O2SAT 95
[2025-08-28 16:42] VITALS: BP 121/77; PULSE 83; RESP 17; O2SAT 95
== END 2025-08-28 17:02 | disposition home or self-care (01) ==
PROVIDERS: Emergency Provider Emergency Medicine; PCP Family Medicine
DX: S06.0X1A Concussion with loss of consciousness of 30 minutes or less, initial encounter (principal); F17.210 Nicotine dependence, cigarettes, uncomplicated; M54.6 Pain in thoracic spine; W18.09XA Striking against other object with subsequent fall, initial encounter; Y92.008 Other place in unspecified non-institutional (private) residence as the place of occurrence of the external cause
CPT/HCPCS: 70450; 71250; 72125; 96372; 99284; 99285; 99291; J2270

== ENCOUNTER 2025-09-02 13:09 | Emergency (ER) | payer MEDICAID, SELFPAY ==
[2025-09-02] VITALS (15 sets, daily range): BP systolic 120–141; BP diastolic 77–93; PULSE 67–82; RESP 11–33; TEMP 36.6; O2SAT 91–98; BMI 43.5
--- NOTE | 2025-09-02 13:48 | CRLHL7_ITS ---
For Patients: As a result of the Century Cures Act, medical imaging exams and procedure reports are released immediately into your electronic medical record. You may view this report before your referring provider. If you have questions, please contact your health care provider. INDICATION: Right sided chest pain, SOB TECHNIQUE: Chest 2 views COMPARISON: CT 08/28/2025 FINDINGS: Cardiovascular and mediastinum: Heart size and vasculature are normal in caliber and appearance. Lungs and pleural spaces: Lungs are clear. No sign of infiltrate or mass. No sign of pleural effusion. No pneumothorax. Bones and soft tissues: No significant findings. IMPRESSION: No acute findings. Dictated by Phill Mathur MD @ 09/02/2025 2:49:28 PM (Electronically Signed)
--- NOTE | 2025-09-02 13:56 | ED_ITS ---
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 He states the chest pain shortness of breath started about 2 hours ago and came on suddenly. Chest pain is in the right side of his chest consistent with where he previously had a construct nail hit him that needed to be removed. That occurred 8-10 years ago he states. Pain is sharp in nature and is reproducible with palpation. States he has some mild shortness of breath associated with the pain. Denies any history of blood clots. Has not noticed any lower extremity swelling. Denies history of cancer, hemoptysis, recent surgeries, hormone use. Did have an episode of vomiting an hour ago along with some general nausea. Denies ever having symptoms like this before. Is also states he gets intermittent blurry vision since he fell and hit his head 5 days ago. States she only gets the dizziness though when he leans forward or squats for extended periods of time. Currently is feeling asymptomatic from that. Does have a mild headache in the back of his head but this been persistent since his concussion. No other concerns noted at this time. Related Data Home Medications ?Medication ?Instructions ?Recorded ?Confirmed No Known Home Medications 08/28/2503/22 Allergies Allergy/AdvReac Type Severity Reaction Status Date / Time No Known Drug Allergies Allergy Verified 09/02/25 13:25 Review of Systems Status of ROS Reports: 10 or more systems reviewed and unremarkable except as noted in History and below [facility] Medical History Umbilical hernia ?K42.9 - Umbilical hernia without obstruction or gangrene (ICD-10) Plantar fasciitis ?M72.2 - Plantar fascial fibromatosis (ICD-10) Surgical History History of thoracic surgery ?Z98.890 - Other specified postprocedural states (ICD-10) Hx of appendectomy ?Z90.49 - Acquired absence of other specified parts of digestive tract (ICD- 10) Family History Father Diabetes Liver disease Mother Diabetes Sister Diabetes 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, 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, 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, 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, 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 Smoking 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 Moist mucous membranes. Neck: Symmetric, trachea midline, No thyromegaly. CVS: RRR, No murmurs or gallops. Peripheral pulses 2+ and equal in all extremities RESP: Unlabored respiratory effort. Clear to auscultation bilaterally. GI: Mild epigastric tenderness, Nondistended, No rebound or guarding. MSK:Extremities w/o deformity, Normal Active ROM, tenderness to the right side of the chest between ribs 5 and 6 near the sternal. States this reproduces his pain exactly. Skin: Warm, Dry. No rashes or lesions. Neuro: Normal Muscle tone, No focal neurological deficits. Psych: Awake, Alert, & Oriented x3. Appropriate mood and affect. Const Vital Signs, click to edit/add: Vital Signs - 24 hr 09/02/25 13:14 09/02/25 13:51 09/02/25 14:00 Temperature 97.9 F Pulse Rate 76 67 Pulse Rate [Pulse Oximeter] 82 Respiratory Rate 16 26 H Blood Pressure Blood Pressure [Right Upper Arm] 120/77 Pulse Oximetry 96 93 94 Oxygen Delivery Method Room Air 09/02/25 14:17 09/02/25 14:30 09/02/25 14:40 Temperature Pulse Rate 82 72 Pulse Rate [Pulse Oximeter] Respiratory Rate 22 21 20 Blood Pressure 141/93 H Blood Pressure [Right Upper Arm] Pulse Oximetry 91 94 Oxygen Delivery Method Room Air 09/02/25 14:45 09/02/25 15:00 Temperature Pulse Rate 77 74 Pulse Rate [Pulse Oximeter] Respiratory Rate 33 H 11 L Blood Pressure Blood Pressure [Right Upper Arm] Pulse Oximetry 94 96 Oxygen Delivery Method Course Vital Signs Vital signs: Initial Vital Signs Temperature 97.9 F 09/02/25 13:14 Temperature Source Temporal Artery Scan 09/02/25 13:14 Pulse Rate 82 09/02/25 13:14 Respiratory Rate 16 09/02/25 13:14 Blood Pressure 120/77 09/02/25 13:14 Blood Pressure Mean 91 09/02/25 13:14 Pulse Oximetry 96 09/02/25 13:14 Oxygen Delivery Method Room Air 09/02/25 13:14 Vital Signs Temperature 97.9 F 09/02/25 13:14 Pulse Rate 82 09/02/25 13:14 Respiratory Rate 16 09/02/25 13:14 Blood Pressure 120/77 09/02/25 13:14 Pulse Oximetry 96 09/02/25 13:14 Oxygen Delivery Method Room Air 09/02/25 13:14 Temperature 97.9 F 09/02/25 13:14 Pulse Rate 74 09/02/25 15:00 Respiratory Rate 11 L 09/02/25 15:00 Blood Pressure 141/93 H 09/02/25 14:40 Pulse Oximetry 96 09/02/25 15:00 Oxygen Delivery Method Room Air 09/02/25 14:40 MDM - Chest Pain MDM Narrative Medical decision making narrative: Patient is a 34-year-old male presenting for chest pain. The differential diagnosis of chest pain is broad and includes common etiologies such as musculoskeletal strain, GERD, pneumonia, etc. More serious etiologies considered include PE, coronary artery disease, pneumothorax, aortic dissection, aortic aneurysm. He is otherwise stable vital signs of my concern for a dissect ion or aortic aneurysm is low. Will do EKG and troponin to the for cardiac abnormalities. He is PERC negative and PE can not be ruled out. Will do viral swabs to look for viral cause. Chest x-ray ordered to look for pneumonia pneumothorax. He is having some mild epigastric discomfort also so will order lipase look for pancreatitis along with liver enzymes. CBC, BMP, magnesium all also ordered. Lab work returned showing no acute concerning abnormalities. Troponin EKG interpreted by myself showed no acute concerning abnormalities. Concerning symptoms started only 2 hours prior will repeat troponin. Chest x-ray interpreted by myself and the radiologist shows no acute concerning abnormalities. Viral swabs are negative. Repeat troponin also within normal limits. Considering pain is reproducible pain is musculoskeletal in nature. The intermittent blurry vision is likely secondary to his previous concussion and only occurs when he is squatting or bending over for long periods of time. Further workup for this is not necessary. He will be discharged. Lab Data Labs: Lab Results 09/02/25 09/02/25 09/02/25 Range/Units 13:48 14:00 14:03 WBC 8.36 (4.50-11.00) K/uL RBC 4.92 (4.30-5.90) m/uL Hgb 15.2 (13.5-17.5) gm/dL Hct 45.1 (37.0-53.0) % MCV 92 (80-100) fL MCH 31 (26-34) pg MCHC 34 (32-36) gm/dL RDW Coeff of Leora 12.0 (11.5-15.5) % Plt Count 349 (140-440) K/uL Neut % (Auto) 54.0 (42.0-72.0) % Lymph % (Auto) 30.5 (20-44) % Mcminn % (Auto) 11.6 H (0.0-11.0) % Eos % (Auto) 3.2 (0.0-7.0) % Baso % (Auto) 0.5 (0.0-3.0) % Neut # (Auto) 4.51 (1.7-7.0) K/uL Lymph # (Auto) 2.55 (0.90-2.90) K/uL Mcminn # (Auto) 1.00 H (0.00-0.90) K/UL Eos # (Auto) 0.27 (0.00-0.50) K/uL Baso # (Auto) 0.04 (0.00-0.30) K/uL Abs Immat Gran (auto) 0.02 (0.00-0.30) K/uL Imm/Tot Granulo (auto) 0.2 % Sodium 139 (135-149) mmol/L Potassium 4.2 (3.6-5.1) mmol/L Chloride 103 (96-114) mmol/L Carbon Dioxide 24 (20-32) mmol/L Anion Gap 12 (7-15) mEq/L BUN 8 (5-24) mg/dL Creatinine 0.6 (0.5-1.5) mg/dL Estimated Creat Clear 153.59 Estimated GFR 128 ml/min Glucose 110 (60-115) mg/dL Calcium 9.3 (8.4-10.6) mg/dL Magnesium 1.9 (1.5-2.6) mg/dL Total Bilirubin 0.5 (0.1-1.5) mg/dL Direct Bilirubin 0.3 (0.0-0.5) mg/dL AST 33 (12-35) U/L ALT 43 (4-50) U/L Alkaline Phosphatase 69 (40-150) U/L POC Troponin I High Sensi < 2.9 L (2.9-28.0) pg/mL Total Protein 8.5 H (6.0-8.3) g/dL Albumin 4.6 (3.3-5.0) g/dL Lipase 280 (23-300) U/L SARS-CoV-2 (PCR) Negative SARS-CoV-2 (Negative) Influenza Type A (PCR) Negative PCR FLU A (Negative) Influenza Type B (PCR) Negative PCR FLU B (Negative) RSV (PCR) Negative PCR RSV (Negative) 09/02/25 Range/Units 15:45 WBC (4.50-11.00) K/uL RBC (4.30-5.90) m/uL Hgb (13.5-17.5) gm/dL Hct (37.0-53.0) % MCV (80-100) fL MCH (26-34) pg MCHC (32-36) gm/dL RDW Coeff of Leora (11.5-15.5) % Plt Count (140-440) K/uL Neut % (Auto) (42.0-72.0) % Lymph % (Auto) (20-44) % Mcminn % (Auto) (0.0-11.0) % Eos % (Auto) (0.0-7.0) % Baso % (Auto) (0.0-3.0) % Neut # (Auto) (1.7-7.0) K/uL Lymph # (Auto) (0.90-2.90) K/uL Mcminn # (Auto) (0.00-0.90) K/UL Eos # (Auto) (0.00-0.50) K/uL Baso # (Auto) (0.00-0.30) K/uL Abs Immat Gran (auto) (0.00-0.30) K/uL Imm/Tot Granulo (auto) % Sodium (135-149) mmol/L Potassium (3.6-5.1) mmol/L Chloride (96-114) mmol/L Carbon Dioxide (20-32) mmol/L Anion Gap (7-15) mEq/L BUN (5-24) mg/dL Creatinine (0.5-1.5) mg/dL Estimated Creat Clear Estimated GFR ml/min Glucose (60-115) mg/dL Calcium (8.4-10.6) mg/dL Magnesium (1.5-2.6) mg/dL Total Bilirubin (0.1-1.5) mg/dL Direct Bilirubin (0.0-0.5) mg/dL AST (12-35) U/L ALT (4-50) U/L Alkaline Phosphatase (40-150) U/L POC Troponin I High Sensi 2.9 (2.9-28.0) pg/mL Total Protein (6.0-8.3) g/dL Albumin (3.3-5.0) g/dL Lipase (23-300) U/L SARS-CoV-2 (PCR) (Negative) Influenza Type A (PCR) (Negative) Influenza Type B (PCR) (Negative) RSV (PCR) (Negative) Imaging Data Chest x-ray: Attestation: I have reviewed the pertinent imaging results. Radiologist's impression: No acute findings. Dictated by Phill Mathur MD @ 09/02/2025 2:49:28 PM ECG Data Attestation: I personally reviewed and interpreted this ECG as follows: Prior ECG tracings: not available for review Interpretation: Normal sinus rhythm with a rate of 76 beats per minute, normal intervals, normal axis, no ST or T-wave abnormalities. Discharge Plan Discharge Clinical Impression: Acute chest wall pain Patient Disposition: Home, Self-Care Condition: Stable Instructions: Chest Wall Pain (ED) Additional Instructions: Take Tylenol and ibuprofen for your pain. Pain is musculoskeletal in nature and should resolve on its own in the next few days. Your intermittent blurry vision is likely from the previous concussion. Return to emergency department for new or worsening symptoms. Prescriptions: No Action No Known Home Medications Follow Up/Referrals: Phill Conde MD [Primary Care Provider, Family Practice] Stand Alone Forms: Virtual Paper Info Instructions
[2025-09-02 14:13] LABS: Hematocrit* 45.1 % (37.0-53.0); Hemoglobin* 15.2 gm/dL (13.5-17.5); Immature Granulocytes Abs Auto 0.02 K/uL (0.00-0.30); Immature Granulocytes Pct Auto 0.2 %; Lymphocytes Absolute Auto 2.55 K/uL (0.90-2.90); Mean Corpuscular HGB Conc 34 gm/dL (32-36); Mean Corpuscular Hemoglobin 31 pg (26-34); Mean Corpuscular Volume 92 fL (80-100); RDW Coefficient of Variation % 12.0 % (11.5-15.5); Red Blood Count* 4.92 m/uL (4.30-5.90); White Blood Count* 8.36 K/uL (4.50-11.00)
[2025-09-02 14:17] LABS: Slide Review Reflex No
[2025-09-02 14:22] LABS: Albumin* 4.6 g/dL (3.3-5.0); Chloride* 103 mmol/L (96-114); Potassium* 4.2 mmol/L (3.6-5.1); Sodium* 139 mmol/L (135-149)
[2025-09-02 14:24] LABS: Blood Urea Nitrogen* 8 mg/dL (5-24); Creatinine* 0.6 mg/dL (0.5-1.5); Est. Creatinine Clearance* 153.59; Estimated Glomerular Filt Rate 128 ml/min
[2025-09-02 14:25] LABS: Alanine Aminotransferase* 43 U/L (4-50); Alkaline Phosphatase* 69 U/L (40-150); Anion Gap 12 mEq/L (7-15); Aspartate Amino Transferase* 33 U/L (12-35); Bilirubin Direct* 0.3 mg/dL (0.0-0.5); Bilirubin Total* 0.5 mg/dL (0.1-1.5); Calcium* 9.3 mg/dL (8.4-10.6); Carbon Dioxide* 24 mmol/L (20-32); Glucose* 110 mg/dL (60-115); Total Protein* 8.5 g/dL (6.0-8.3)
[2025-09-02 14:47] LABS: PCR FLU A Negative PCR FLU A (Negative); PCR FLU B Negative PCR FLU B (Negative); PCR RSV Negative PCR RSV (Negative); SARS PCR* Negative SARS-CoV-2 (Negative)
== END 2025-09-02 16:37 | disposition home or self-care (01) ==
PROVIDERS: Emergency Provider Student in an Organized Health Care Education/Training Program; PCP Family Medicine
DX: R07.89 Other chest pain (principal)
CPT/HCPCS: 36415; 71046; 80048; 80076; 83690; 83735; 84484; 85025; 87631; 93005; 99284; 99285